=== PATIENT | male | born 1990 | race Caucasian/White ===

== ENCOUNTER 2017-02-19 18:22 | Inpatient (IN) | payer OTHER ==
[2017-02-19] MEDS ORDERED: IV VANCOMYCIN PER PHARMACY 1 EACH MISC MISCELLANE PRN (18:49)
[2017-02-19] MEDS ORDERED: HYDROmorphone 1 MG/ML 1 ML SYRINGE IVP STA (18:49)
[2017-02-19] MEDS ORDERED: ONDANSETRON 4 MG/2 ML VIAL IVP STA (18:49)
[2017-02-19] MEDS ORDERED: SODIUM CHLORIDE 0.9% 1,000 ML IV STA (18:49)
[2017-02-19] MEDS ORDERED: VANCOMYCIN 1,500 MG in SODIUM CHLORIDE 0.9% 250 ML IVPB STA (18:50)
[2017-02-19] MEDS ORDERED: ONDANSETRON 4 MG/2 ML VIAL IVP PRN (19:01)
[2017-02-19] MEDS ORDERED: ACETAMINOPHEN TAB 325 MG TAB PO PRN (19:01)
[2017-02-19] MEDS ORDERED: SODIUM CHLORIDE 0.9% 1,000 ML IV ONE (19:01)
[2017-02-19] MEDS ORDERED: NALOXONE 0.4 MG/ML 1 ML VIAL IV PRN (19:01)
--- NOTE | 2017-02-19 19:01 | ED ---
General Adult HPI - General Chief complaint: Skin/Abscess/Foreign Body Stated complaint: rt arm inflamation, rt foot pain Time Seen by Provider: 02/19/17 18:38 Source: patient, RN notes reviewed Mode of arrival: ambulatory Limitations: no limitations - History of Present Illness Initial comments: Patient 26-year-old male who presents emergency room today with a chief complaint of increased swelling and pain to the right forearm and hand. Does admit to history of IV drug use. States he last used 4 days ago. States that he noticed increased pain starting the following day. States increased swelling last 2-3 days. admits to history of foot drop on the right to do a fasciotomy that was performed back in August. Denies any other complaints. Patient denies any recent fever, chills, shortness of breath, chest pain, back pain, abdominal pain, nausea or vomiting, numbness or tingling, dysuria or hematuria, constipation or diarrhea, headaches or visual changes, or any other complaints. - Related Data Home Medications Medication Instructions Recorded Confirmed Methocarbamol [Robaxin] 1,000 mg PO QID 02/19/17 02/19/17 Pregabalin [Lyrica] 150 mg PO 02/19/17 Allergies Allergy/AdvReac Type Severity Reaction Status Date / Time No Known Allergies Allergy Verified 02/19/17 18:33 Review of Systems ROS Statement: Those systems with pertinent positive or pertinent negative responses have been documented in the HPI. ROS Other: All systems not noted in ROS Statement are negative. Past Medical History Additional Past Medical History / Comment(s): drug abuse History of Any Multi-Drug Resistant Organisms: None Reported Additional Past Surgical History / Comment(s): right hip fascitomy, right foot drop Past Psychological History: No Psychological Hx Reported Smoking Status: Current every day smoker Past Alcohol Use History: None Reported Past Drug Use History: Heroin General Exam - General Exam Comments Initial Comments: General: The patient is awake and alert, in no distress, and does not appear acutely ill. Eye: Pupils are equal, round and reactive to light, extra-ocular movements are intact. No nystagmus. There is normal conjunctiva bilaterally. No signs of icterus. Ears, nose, mouth and throat: There are moist mucous membranes and no oral lesions. Neck: The neck is supple, there is no tenderness or JVD. Cardiovascular: There is a regular rate and rhythm. No murmur, rub or gallop is appreciated. Respiratory: Lungs are clear to auscultation, respirations are non-labored, breath sounds are equal. No wheezes, stridor, rales, or rhonchi. Musculoskeletal: Normal ROM. Strength 5/5. Sensation intact. Pulses equal bilaterally 2+. Neurological: A&O x 3. CN II-XII intact, There are no obvious motor or sensory deficits. Coordination appears grossly intact. Speech is normal. Skin: crease redness and swelling to the right forearm and hand. Mild hepatitic streaking seen at the back of the right elbow. Psychiatric: Cooperative, appropriate mood & affect, normal judgment. Limitations: no limitations Course Vital Signs 02/19/17 18:24 Temperature 99.4 F Pulse Rate 92 Respiratory 18 Rate Blood Pressure 120/68 O2 Sat by Pulse 98 Oximetry Disposition Clinical Impression: IVDU (intravenous drug user), Cellulitis of arm, right Disposition: ADMITTED IP TO THIS [facility] Condition: Stable Referrals: Nonstaff,Physician [Primary Care Provider] - 1-2 days Time of Disposition: 19:00
[2017-02-19 19:39] LABS: Basophils % (A) 0 %; CH 30.4; CHCM 34.3; Eosinophils # (A) 0.2 k/uL (0-0.7); Eosinophils % (A) 2 %; HCT 37.1 % (39.0-53.0); HDW 2.87; HGB 12.7 gm/dL (13.0-17.5); Luc # (Auto) 0.19; Luc % (Auto) 1; Lymphocytes # (A) 1.2 k/uL (1.0-4.8); Lymphocytes % (A) 9 %; MCH 30.5 pg (25.0-35.0); MCHC 34.2 g/dL (31.0-37.0); MCV 89.2 fL (80.0-100.0); Mean Platelet Volume 6.5; Monocytes # (A) 0.8 k/uL (0-1.0); Monocytes % (A) 6 %; Neutrophils % (A) 82 %; RBC 4.16 m/uL (4.30-5.90); RDW 13.3 % (11.5-15.5); WBC 13.4 k/uL (3.8-10.6); WBC (Perox) 13.34
[2017-02-19 19:48] LABS: ALT 29 U/L (21-72); AST 26 U/L (17-59); Alkaline Phosphatase 72 U/L (38-126); Anion Gap 13 mmol/L; Blood Urea Nitrogen 21 mg/dL (9-20); Calcium 9.3 mg/dL (8.4-10.2); Carbon Dioxide 25 mmol/L (22-30); Chloride 104 mmol/L (98-107); Glucose 63 mg/dL (74-99); Non-African American GFR(MDRD) >60 (>60 ml/min/1.73 sqM); Potassium 4.6 mmol/L (3.5-5.1); Sodium 142 mmol/L (137-145); Total Bilirubin 0.4 mg/dL (0.2-1.3); Total Protein 7.2 g/dL (6.3-8.2)
[2017-02-19] MEDS ORDERED: TEMAZEPAM 15 MG CAP PO PRN (20:55)
[2017-02-19] MEDS ORDERED: METHOCARBAMOL 500 MG TAB PO PRN (20:57)
[2017-02-19] MEDS: HEPARIN SODIUM,PORCINE 5,000 UNIT/ML 1 ML VIAL SQ SCH (22:27)
[2017-02-19] MEDS ORDERED: LORazepam 2 MG/ML SYRINGE IV PRN (22:38)
[2017-02-20] MEDS: PREGABALIN 75 MG CAP PO SCH ×3 (00:06→20:30)
[2017-02-20] MEDS: KETOROLAC 30 MG/ML 1 ML VIAL IVP PRN ×4 (00:06→22:07)
[2017-02-20] MEDS: NICOTINE 14MG/24HR PATCH TRANSDERM SCH ×2 (00:06→08:12)
[2017-02-20] MEDS: VANCOMYCIN 1,500 MG in SODIUM CHLORIDE 0.9% 250 ML IVPB SCH ×3 (01:12→16:31)
[2017-02-20] MEDS: HEPARIN SODIUM,PORCINE 5,000 UNIT/ML 1 ML VIAL SQ SCH ×2 (08:12→20:32)
[2017-02-20] MEDS: PANTOPRAZOLE 40 MG TABLET PO SCH ×2 (08:12→08:23)
--- NOTE | 2017-02-20 08:38 | XR ---
Right forearm HISTORY: Swelling and erythema, pain 2 views of the right forearm Bone mineralization, joint spaces are maintained. There is soft tissue swelling. IMPRESSION: Correlate for soft tissue infection, cellulitis. Follow-up as indicated.
[2017-02-20 08:39] LABS: Anion Gap 5 mmol/L; Blood Urea Nitrogen 13 mg/dL (9-20); Calcium 8.7 mg/dL (8.4-10.2); Carbon Dioxide 25 mmol/L (22-30); Chloride 109 mmol/L (98-107); Glucose 94 mg/dL (74-99); Non-African American GFR(MDRD) >60 (>60 ml/min/1.73 sqM); Potassium 4.2 mmol/L (3.5-5.1); Sodium 139 mmol/L (137-145)
[2017-02-20 08:40] LABS: Basophils % (A) 0 %; CH 30.4; CHCM 34.3; Eosinophils # (A) 0.2 k/uL (0-0.7); Eosinophils % (A) 2 %; HCT 35.7 % (39.0-53.0); HDW 2.84; HGB 12.1 gm/dL (13.0-17.5); Luc # (Auto) 0.18; Luc % (Auto) 2; Lymphocytes # (A) 1.1 k/uL (1.0-4.8); Lymphocytes % (A) 10 %; MCH 30.3 pg (25.0-35.0); MCV 89.2 fL (80.0-100.0); Mean Platelet Volume 6.3; Monocytes # (A) 0.5 k/uL (0-1.0); Monocytes % (A) 5 %; Neutrophils # (A) 8.8 k/uL (1.3-7.7); Neutrophils % (A) 81 %; RDW 13.4 % (11.5-15.5); WBC 10.8 k/uL (3.8-10.6); WBC (Perox) 11.02
[2017-02-20 09:51] VITALS: BMI 22.3
--- NOTE | 2017-02-20 10:48 | HP ---
DATE OF ADMISSION: 02/19/2017 CHIEF COMPLAINT: Pain and swelling of the right forearm. HISTORY OF PRESENT ILLNESS: This 26 -year-old gentleman with a past medical history of IV drug abuse, history of right hip fasciotomy, right foot drop, not being followed by primary care physician pin the outpatient setting was apparently using IV heroin. The last use was 3 days ago. The patient noted pain and swelling of the right forearm. Because of increasing pain and swelling, the patient came to [facility] and was admitted to the hospital for further evaluation and treatment. There is no history of any fever, rigors or chills. No history of headache, loss of consciousness or seizures. The patient complaining of severe pain at this time. PAST MEDICAL HISTORY: History of IV drug abuse. History of right hip fasciotomy. MEDICATIONS: 1. Lyrica 150 mg p.o. b.i.d. 2. Robaxin 500 mg q.i.d. p.r.n. ALLERGIES: None. FAMILY HISTORY: No history of heart disease or strokes in the family. SOCIAL HISTORY: History of smoking, history of IV drug abuse, heroin. 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 REVIEW OF SYSTEMS: ENT: No diminishing hearing. No diminished vision. CARDIOVASCULAR: No angina or palpitations. RESPIRATORY: No cough. No hemoptysis. GI: No nausea. : No dysuria. Nervous system: No numbness or weakness. ALLERGY/IMMUNOLOGY: No asthma or hayfever. MUSCULOSKELETAL: As mentioned earlier. HEMATOLOGY/ONCOLOGY: No history of anemia. ENDOCRINE: No history of diabetes mellitus , hypothyroidism. CONSTITUTIONAL: As mentioned earlier. DERMATOLOGY: Negative. RHEUMATOLOGY: Negative. PSYCHIATRY: As mentioned earlier. PHYSICAL EXAMINATION: The patient is alert and oriented times three. Pulse 82, blood pressure 124/74. Respiratory rate 19. Temperature 98.8, pulse ox 97% on room air. HEENT: Conjunctivae normal. NECK: No jugular venous distention. CARDIOVASCULAR: S1, S2 muffled. Breath sounds diminished at the bases. No rhonchi. No crackles. ABDOMEN: Soft and nontender. No mass palpable. LEGS: No edema. No swelling. Nervous system: Higher functions as mentioned earlier. Moves all four limbs. No focal deficits. LYMPHATICS: No lymph nodes palpable in the neck, axillae or groin. SKIN: No ulcer, rash or bleeding. Pain and swelling of the right forearm present and tenderness present. A small area of fluctuation also present. LABS: WBC 13.2, hemoglobin is 12.7, glucose 63. ASSESSMENT: 1. Acute cellulitis of the right forearm, status post IV drug abuse. 2. Increased WBC. 3. Anemia, normocytic. 4. Hypoglycemia, mild. 5. History of right hip fasciotomy and right foot drop. 6. History of nicotine dependence. 7. FULL CODE. RECOMMENDATIONS AND DISCUSSION: In this 26-year-old gentleman who presented with multiple complex medical issues, we will monitor the patient closely, continue the current medications, continue with symptomatic treatment. I would recommend IV vancomycin. I would also recommend orthopedic evaluation because of concerns of compartment syndrome and other issues. Otherwise, IV fluids and symptomatic treatment. I would also recommend Toradol. Further recommendations to follow. Recommend the patient to follow up with primary physician closely in the outpatient setting.
--- NOTE | 2017-02-20 11:16 | P.CNOR ---
History of Present Illness - [facility] Consult date: 02/20/17 Consult reason: other (Right upper extremity swelling and cellulitis with recent history of IV drug use) Review of Systems Denies any recent trauma his right upper extremity. Admits to drug use with IV approximately 4 days ago. He feels tightness in his fingers and wrist and elbow which apparently has been improving here in the hospital. He admits to recent history of fasciotomy and his right hip than the [place] Past Medical History Past Medical History: Musculoskeletal Disorder (Admits to soreness and tightness in his wrist and fingers. She has had swelling and erythema in his right upper extremity. Denies any recent trauma to his right upper extremity. He admits to recent fasciotomy at his right hip he is unclear the specific details but this was done in August 2016 at [facility]) Additional Past Medical History / Comment(s): drug abuse History of Any Multi-Drug Resistant Organisms: None Reported Additional Past Surgical History / Comment(s): right hip fascitomy, right foot drop Past Anesthesia/Blood Transfusion Reactions: Previous Problems w/ Anesthesia Additional Past Anesthesia/Blood Transfusion Reaction / Comm: Pt states he was hard to wake up after. Past Psychological History: No Psychological Hx Reported Smoking Status: Current every day smoker Past Alcohol Use History: None Reported Past Drug Use History: Heroin - Past Family History Mother Family Medical History: No Reported History Father Family Medical History: No Reported History Medications and Allergies Home Medications Medication Instructions Recorded Confirmed Type Methocarbamol [Robaxin] 500 mg PO QID PRN 02/19/17 02/19/17 History Pregabalin [Lyrica] 150 mg PO BID 02/19/17 02/19/17 History Allergies Allergy/AdvReac Type Severity Reaction Status Date / Time No Known Allergies Allergy Verified 02/19/17 19:25 Physical Examination Osteopathic Statement: *. No significant issues noted on an osteopathic structural exam other than those noted in the History and Physical/Consult. - Elbow right Location of pain: posterior, forearm Pain modifiers: with motion Stiffness: other (Some overall tightness with generalized motion) Swelling: of the forearm Appearance: erythema, warmth (There is significant swelling over his hand wrist fingers forearm and posterior to his elbow. There is erythema and some induration particularly the mid forearm by his ulna. He has good motion at his hand wrist and fingers though it is tight. There is no pain out of proportion with exam. He has able to passively or actively mobilize his elbow wrist hand and fingers. There is a area over his medial posterior forearm approximately 3 x 3 cm in size that has mostly erythema and induration. There is no obvious blistering or discrete fluid collection) Results - Labs Labs: Abnormal Lab Results - Last 24 Hours (Table) 02/19/17 02/19/17 02/20/17 Range/Units 19:20 19:20 07:43 WBC 13.4 H (3.8-10.6) k/uL RBC 4.16 L (4.30-5.90) m/uL Hgb 12.7 L (13.0-17.5) gm/dL Hct 37.1 L (39.0-53.0) % Neutrophils # 11.0 H (1.3-7.7) k/uL Chloride 109 H (98-107) mmol/L BUN 21 H (9-20) mg/dL Glucose 63 L (74-99) mg/dL 02/20/17 Range/Units 07:43 WBC 10.8 H (3.8-10.6) k/uL RBC 4.00 L (4.30-5.90) m/uL Hgb 12.1 L (13.0-17.5) gm/dL Hct 35.7 L (39.0-53.0) % Neutrophils # 8.8 H (1.3-7.7) k/uL Chloride (98-107) mmol/L BUN (9-20) mg/dL Glucose (74-99) mg/dL H & H 02/19/17 02/20/17 Range/Units 19:20 07:43 Hgb 12.7 L 12.1 L (13.0-17.5) gm/dL Hct 37.1 L 35.7 L (39.0-53.0) % Result Diagrams: 02/20/17 07:43 02/20/17 07:43 - Diagnostic results Elbow x-ray: report reviewed, image reviewed (The patient has x-rays of his right forearm which show no evidence of fracture or dislocation. There is significant swelling in his soft tissues. There is no retained foreign bodies.) Assessment and Plan Plan: Assessment Cellulitis right upper extremity with recent history of IV drug abuse approximately 4 days ago Diffuse swelling and erythema right hand wrist fingers forearm and elbow No discrete fluid collection at this point No evidence of compartment syndrome Plan The patient has significant cellulitis of the right upper extremity with swelling diffusely due to his IV drug abuse. He does not have a discrete fluid collection and I would not plan to pursue irrigation and debridement at this point however if the infection continues to clear and his issues come to a head with a more discrete fluid mass then and irrigation and debridement may be warranted. For the time being I think he should continue with his IV medication as this does seem to be providing improvement. He may do well with a warm compress over his right upper extremity as well and elevation. I discussed this with him and answered his questions best my ability and he is agreeable.
[2017-02-20] MEDS: HYDROmorphone 1 MG/ML 1 ML SYRINGE IV PRN ×3 (13:09→20:31)
--- NOTE | 2017-02-20 13:09 | US ---
EXAMINATION TYPE: US venous doppler duplex UE RT DATE OF EXAM: 02/20/2017 COMPARISON: NONE CLINICAL HISTORY: Right upper extremity swelling; rule out DVT. Right arm swelling SIDE PERFORMED: Right Right Arm: Appears negative for DVT, scanned right lateral lower arm palpable/painful area: 3.6 x 1.8 x 2.3cm superficial complex vascular area IMPRESSION: 1. No diagnostic evidence of DVT. 2. There is a 3.6 cm superficial vascular area overlying the area of palpable abnormality which appea rs very complex. Differential include abscess and hematoma. Other etiologies not excluded.
[2017-02-20] MEDS: LORazepam 1 MG TAB PO PRN ×2 (15:10→20:31)
[2017-02-21] MEDS: VANCOMYCIN 1,500 MG in SODIUM CHLORIDE 0.9% 250 ML IVPB SCH ×3 (00:29→19:56)
[2017-02-21] MEDS: HYDROmorphone 1 MG/ML 1 ML SYRINGE IV PRN ×5 (00:43→15:29)
[2017-02-21] MEDS: LORazepam 1 MG TAB PO PRN ×3 (00:43→22:12)
[2017-02-21] MEDS ORDERED: VANCOMYCIN TROUGH DUE 1 EACH MISC MISCELLANE ONE (07:00)
[2017-02-21] MEDS: PANTOPRAZOLE 40 MG TABLET PO SCH (07:42)
[2017-02-21] MEDS: HEPARIN SODIUM,PORCINE 5,000 UNIT/ML 1 ML VIAL SQ SCH ×2 (07:42→19:57)
[2017-02-21] MEDS: NICOTINE 14MG/24HR PATCH TRANSDERM SCH (07:42)
[2017-02-21] MEDS: PREGABALIN 75 MG CAP PO SCH ×2 (07:50→19:57)
[2017-02-21 08:00] LABS: Blood Urea Nitrogen 14 mg/dL (9-20); Calcium 9.1 mg/dL (8.4-10.2); Carbon Dioxide 25 mmol/L (22-30); Glucose 102 mg/dL (74-99); Non-African American GFR(MDRD) >60 (>60 ml/min/1.73 sqM); Potassium 4.2 mmol/L (3.5-5.1); Sodium 140 mmol/L (137-145)
[2017-02-21 08:06] LABS: Anion Gap 9 mmol/L; Chloride 106 mmol/L (98-107)
--- NOTE | 2017-02-21 10:41 | PN ---
DATE OF SERVICE: 02/20/2017 This 26 -year-old gentleman who was admitted with acute cellulitis of right forearm after IV drug abuse, is being closely monitor. Orthopedics has seen the patient. There is a pointy area but however, surgical interventions is not being planned yet. The ultrasound of the arm was recommend that showed 3.690 superficial vascular area overlying the area of palpable abnormality which appears very complex, possible abscess or hematoma. No evidence of DVT. On exam, alert and oriented x3. Pulse is 86, blood pressure 120/55, respiratory rate 18, temperature 97.22. Pulse ox 94% on room air. HEENT: Conjunctivae normal. NECK: No jugular venous distention. CARDIOVASCULAR: S1, S2 muffled. RESPIRATORY: Breath sounds diminished at the bases. Scattered rhonchi. No crackles. ABDOMEN: Soft. Nontender. LEGS: No edema. No swelling. CENTRAL NERVOUS SYSTEM: No focal deficits. Right arm swelling and pointed area over dorsum of the mid part of the right forearm, flexion, tender, erythematous. LABS: WBC 10.5, hemoglobin is 12.1. ASSESSMENT: 1. Acute cellulitis right forearm, status post IV drug abuse. 2. Rule out hematoma or abscess or complex mass lesion in the mid part of the right forearm. 3. Increased WBC. 4. Anemia, normocytic. 5. Hypoglycemia, mild. 6. History of right hip fasciotomy and right foot drop. 7. History of nicotine dependence. 8. FULL CODE. RECOMMENDATIONS AND DISCUSSION: Continue the current medications. Continue symptomatic treatment. Otherwise, continue broad spectrum IV antibiotics. Guarded prognosis. Closely follow with Orthopedic surgery. Prognosis guarded. Pain medications. See orders for further details. Discussed with the patient. Understands and agrees. Discussed with Ortho. Ultrasound reviewed.
--- NOTE | 2017-02-21 12:11 | P.PN ---
Subjective Principal diagnosis: Right upper extremity cellulitis with pain and swelling; recent IV drug abuse Patient is a very pleasant 26-year-old male who is seen and examined at bedside for follow-up evaluation for right upper extremity swelling and cellulitis with eccentric history of IV drug use. Since being seen and examined yesterday, he continues to receive IV vancomycin. He was experiencing significant right upper extremity swelling, erythema, and pain up to the lower portion of the right tricep. The erythema has significantly reduced and is mainly localized to the right forearm at the mid forearm by the ulna. He has evidence of a discrete fluctuant fluid collection/mass that appears to have come to a head. Patient states his pain is better controlled at the right upper extremity today as compared yesterday. He continues has significant stiffness with motion of the right elbow, wrist, and all fingers of the right hand. He has pain with closing and opening his right fist. He denies any other body pains. He denies any recent injuries. He states his last food intake was at approximately 11:00 AM this morning. Since being seen yesterday, he has an ultrasound Doppler performed of the right upper extremity did show evidence of a superficial vascular area overlying the area of palpable abnormality of the right forearm which appears very complex in which the differential would include abscess and hematoma. Objective - Vital Signs Vital signs: Vital Signs Temp 99.6 F 02/21/17 07:00 Pulse 93 02/21/17 07:00 Resp 14 02/21/17 08:00 BP 138/70 02/21/17 07:00 Pulse Ox 96 02/21/17 07:00 Intake & Output 02/20/17 02/21/17 02/21/17 18:59 06:59 18:59 Intake Total 240 400 Balance 240 400 Weight 72.575 kg Intake: Oral 240 400 Other: # Voids 2 1 # Bowel Movements 0 - Exam Physical Exam: Patient is awake, alert, and oriented 3 Vital signs stable Good chest excursion with deep inspiration and expiration Abdomen soft nontender No signs or symptoms of DVT; no calf pain Significant erythema more localized over the right mid forearm at the ulnar side with evidence of discrete fluctuant fluid collection/mass that appears to come to a head with fluid collection Swelling of the right upper extremity at approximately the mid tricep distally throughout the right upper extremity Generalized pain with palpation of the right upper extremity Right upper extremity is warm with palpation Active range of motion of the right upper extremity; increased pain with performing folder inspector on the right and finger extension Stiffness with moving all fingers of the right hand and performing elbow flexion and extension Active range of motion positive sustained without difficulty including the right deltoid - Labs CBC & Chem 7: 02/20/17 07:43 02/21/17 06:58 Labs: Abnormal Lab Results - Last 24 Hours (Table) 02/21/17 Range/Units 06:58 Glucose 102 H (74-99) mg/dL Microbiology - Last 24 Hours (Table) 02/19/17 19:20 Blood Culture - Preliminary Blood No Growth after 24 hours Assessment and Plan (1) Right arm pain Status: Acute (2) Swelling of right upper extremity Status: Acute (3) Cellulitis of arm, right Status: Acute (4) IVDU (intravenous drug user) Status: Acute Plan: Pertinent studies: Venous ultrasound Doppler of the right upper extremity: 3.6 cm superficial vascular area overlying the area of palpable abnormality which appears very complex in which the differential would include abscess and hematoma; no diagnostic evidence of DVT; scan of the right lateral forearm shows palpable 3.6 cm x 1.8 cm x 2.3 cm superficial complex vascular area Assessment: Right upper extremity cellulitis with recent history of IV drug abuse approximate 5 days ago Diffuse right upper extremity swelling and pain Evidence of discrete fluctuant collection/mass of the right mid forearm on the ulnar side Plan: 1. Patient has been discussed in detail with Dr. Jose Carlos Brewer. Patient will need to undergo incision and drainage of the infected wound site of the right mid forearm on the ulnar side. Patient will become nothing by mouth status immediately. We may plan for surgical intervention later today. This has been discussed in detail with the patient at the bedside. Patient feels incision and drainage is a good plan of care as conservative treatment has not significantly improved his symptoms. Case has been discussed in detail with Dr. Angela in medicine as well who also feels proceeding for surgical intervention is good plan of care. 2. Dr. Angela in medicine will continue to follow patient 3. We'll continue to follow patient closely Time with Patient: Greater than 30
[2017-02-21] MEDS ORDERED: LIDOCAINE 1% INJ 10MG/ML (20 ML MDV) ONE (17:08)
[2017-02-21] MEDS ORDERED: MIDAZOLAM 2 MG/2 ML VIAL ONE (17:08)
[2017-02-21] MEDS ORDERED: fentaNYL (PF) 50 MCG/ML 2 ML AMP ONE (17:08)
[2017-02-21] MEDS ORDERED: PROPOFOL 10 MG/ML 20 ML VIAL IV ONE (17:08)
[2017-02-21] MEDS ORDERED: SODIUM CHLORIDE 0.9% 1,000 ML IV ONE (17:08)
[2017-02-21] MEDS ORDERED: SUCCINYLCHOLINE CHLORIDE 100 MG/5 ML SYR IV ONE (17:08)
[2017-02-21] MEDS ORDERED: ceFAZolin 1,000 MG in SODIUM CHLORIDE 0.9% 1,000 ML IRRIGATION ONE (17:32)
[2017-02-21] MEDS ORDERED: HYDROmorphone 1 MG/ML 1 ML SYRINGE IVP ONE ×2 (18:02→18:11)
[2017-02-21] MEDS ORDERED: BENZOCAINE/MENTHOL LOZENG 1 EACH LOZENGE MUCOUS MEM PRN (18:08)
--- NOTE | 2017-02-21 18:08 | P.OP ---
Date of Procedure: 02/21/17 Preoperative Diagnosis: Abscess right forearm Cellulitis right forearm History of recent IV drug abuse Postoperative Diagnosis: Same Procedure(s) Performed: Irrigation and excisional debridement of the right forearm abscess deep extending into the fascia and muscle not involving the bone Implants: Anesthesia: GETA Pathology: other (Deep wound culture sent to microbiology) Condition: stable Disposition: PACU Indications for Procedure: Operative Findings: Description of Procedure: Preoperative diagnosis: Right forearm abscess, deep into the muscular tissue Right forearm cellulitis Recent history of IV drug abuse Procedure: Incision with irrigation and excisional debridement of right forearm abscess, deep into the muscular tissue Surgeon: Dr. Brewer Asst.: None Anesthesia: Gen. per Dr. Suárez Estimated blood loss: Approximately 20 mL Components implanted: The wound was packed with iodoform gauze Disposition: To recovery room in good stable condition Operative indications The patient has been in the hospital in regards to his right forearm infection. He has a recent history of IV drug abuse and developed an infection in his right forearm with cellulitis with possible abscess. He has been on IV antibiotics and the infection has come to a head over his right ulnar-sided forearm. There is obvious fluid collection at the area and significant erythema warmth or induration. Patient was continuing his IV antibiotics. With the fluid and pus under pressure we felt he had a significant abscess extending to the deep tissue and I felt that surgical intervention could give him significant benefit to alleviate the infection. We discussed the range of treatment options from conservative to surgical. They elected proceed with surgical intervention. We answered their questions to the best of our ability healing which they can understand. They signed an informed consent. Operative summary After obtaining informed consent evaluation by anesthesia, preoperative evaluation and clearance for medical service, the patient was identified and prepped Bern[place] area and the surgical site was marked. There brought to the operating room where the given appropriate anesthesia by the anesthesia department in standard fashion without any complications. Once the anesthesia was established we were able to position the patient in a supine position with his right arm draped free. The airway and C-spine was monitored continuously. Once patient was well positioned lower extremity was prepped and draped in normal standard sterile fashion. An appropriate keystone protocol and timeout was completed and were able to proceed with surgery. At his right upper extremity over the abscess I made an incision approximately 4 cm in length. Extending into the subcutaneous tissue there was gross purulence emitted from the abscess. It was foul smelling opaque greenish yellow fluid. I was able to explore the abscess and drain out significant amount of purulent pus. Deep wound culture was taken and sent to microbiology. The abscess itself extended through the subcu tissue down into the muscular tissue there is a pocket extending approximately 6 x 6 cm at the deep tissue. There is significant denuded tissue and I was able to curet down and excise denuded tissue and denuded margins of tissue to get to a good clean base. Once the excision of the purulent tissue was removed the wound was copiously irrigated. Further tissue was excised to a clean base. There is no further pus admitting admitted and the deep wound was copiously irrigated with antibiotic solution of 2 L. Bleeding was managed and the wound was packed with iodoform gauze and the skin was closed loosely with 3-0 nylon. The area was cleaned and dried and then dressed with 4 x 4's web roll and an Nikolay wrap. We did not use a tourniquet the patient had good vascularity status distal arm and hand. He was woken up by anesthesia. Troponin down he was extubated and transferred back to his stretcher brought to recovery room in good stable condition he'll be admitted for continued IV antibiotics medical management and wound care. We will continue to follow him closely for his postop course.
--- NOTE | 2017-02-21 18:53 | PN ---
DATE OF SERVICE: 02/21/2017 This 26-year-old gentleman was admitted with acute cellulitis and pointed abscess in the forearm at this time today. No chest pain or palpitations. Dr. Brewer is planning possible surgical intervention with I&D. On exam, alert, oriented x3. Pulse 93, blood pressure 130/70, respirations 14, temperature 98.6, pulse 96% on room air. HEENT: Normal. NECK: No JVD. CARDIOVASCULAR: S1 and S2 muffled. LUNGS: Breath sounds diminished in the bases. No rhonchi, no crackles. ABDOMEN: Soft, nontender. No masses palpable. EXTREMITIES: Legs no edema. No swelling. Right forearm significant erythema, swelling and abscess pointing with pain and tenderness and yellowish nature present, fluctuating. LABS: WBC 10, hemoglobin 12.1. ASSESSMENT: 1. Acute cellulitis and abscess of the right forearm secondary to IV drug abuse. 2. Hematoma or abscess complex mass lesion in the mid part of the right forearm on ultrasound. 3. Increased WBC. 4. Anemia, normocytic. 5. Hypoglycemia, mild. 6. History of right and right foot drop. 7. History of nicotine dependence. 8. Full code. RECOMMENDATIONS AND DISCUSSION: Continue current medications, continue with monitoring and symptomatic treatment. Otherwise at this time I would recommend incision and drainage and closely follow with orthopedic surgery. Obtain cultures. Other than that, I would also recommend follow up cultures. Guarded prognosis because of multiple complex medical issues. Further recommendations to follow. See orders for further details. MTDD
[2017-02-21] MEDS: cloNIDine HCL 0.1 MG TAB PO SCH (19:56)
[2017-02-21] MEDS: SODIUM CHLORIDE 0.9% 1,000 ML IV SCH (19:56)
[2017-02-21] MEDS: HYDROmorphone 1 MG/ML 1 ML SYRINGE IVP PRN (20:30)
[2017-02-21] MEDS: KETOROLAC 30 MG/ML 1 ML VIAL IVP PRN (22:12)
[2017-02-22] MEDS: HYDROmorphone 1 MG/ML 1 ML SYRINGE IVP PRN ×6 (01:50→23:54)
[2017-02-22] MEDS: cloNIDine HCL 0.1 MG TAB PO SCH ×2 (07:48→21:31)
[2017-02-22] MEDS: NICOTINE 14MG/24HR PATCH TRANSDERM SCH (07:53)
[2017-02-22] MEDS: HYDROcodone/APAP 5-325MG 1 EACH TAB PO PRN (07:54)
[2017-02-22] MEDS: PREGABALIN 75 MG CAP PO SCH ×2 (07:54→21:31)
[2017-02-22] MEDS: PANTOPRAZOLE 40 MG TABLET PO SCH (07:54)
[2017-02-22] MEDS: LORazepam 1 MG TAB PO PRN ×5 (07:54→23:53)
[2017-02-22] MEDS: HEPARIN SODIUM,PORCINE 5,000 UNIT/ML 1 ML VIAL SQ SCH ×2 (07:54→21:31)
[2017-02-22] MEDS: KETOROLAC 30 MG/ML 1 ML VIAL IVP PRN ×3 (07:54→21:44)
[2017-02-22] MEDS: VANCOMYCIN 1,500 MG in SODIUM CHLORIDE 0.9% 250 ML IVPB SCH ×2 (07:55→21:32)
[2017-02-22] MEDS: SODIUM CHLORIDE 0.9% 1,000 ML IV SCH ×2 (07:55→21:31)
--- NOTE | 2017-02-22 09:03 | P.PN ---
Subjective Principal diagnosis: Right upper extremity cellulitis with pain and swelling; recent IV drug abuse Patient is a pleasant 26-year-old male who is seen and examined at bedside follow-up evaluation for his cellulitis and abscess of the right forearm with history of recent IV drug abuse. Last evening he was taken to the operating room for irrigation and excisional debridement of the right forearm deep abscess extending into the fascia and muscle but not involving the bone. Since that time, he states he continued his have some tightness throughout range of motion of the right upper extremity but feels less tightness and his range of motion of the right upper extremity is more easy to perform. He does continue to have some warmth and swelling over the right upper extremity. He continues with some redness as well that is more localized to the right forearm. He's been eating and voiding without significant difficulty. He continues receive IV vancomycin. He continues to be seen by Dr. Angela in medicine. Objective - Vital Signs Vital signs: Vital Signs Temp 96.6 F L 02/22/17 07:32 Pulse 83 02/22/17 07:32 Resp 20 02/22/17 07:32 BP 115/58 02/22/17 07:32 Pulse Ox 96 02/22/17 07:32 Intake & Output 02/21/17 02/22/17 02/22/17 18:59 06:59 18:59 Intake Total 401 Output Total 20 Balance 381 Intake: IV 401 Output: Estimated Blood Loss 20 Other: # Voids 2 1 - Exam Physical Exam: Patient is awake, alert, and oriented 3 Vital signs stable Good chest excursion with deep inspiration and expiration Abdomen soft nontender No signs or symptoms of DVT; no calf pain Dressing intact over the right forearm some: Dressing is removed during physical examination; iodoform is removed from the incision site; sutures remained intact Evidence of a small opening at the incision at the right forearm after removal of iodoform Some mild serosanguineous drainage that does not appear purulent at the incision site Dressing is reapplied with Adaptic, nonstick Telfa, 4 x 4's, and Nikolay wrap Right upper extremity erythema more localized over the right mid forearm at the ulnar side Swelling of the right upper extremity at approximately the mid tricep distally throughout the right upper extremity that has had some improvement as compared to yesterday Generalized pain with palpation of the right upper extremity Right upper extremity is warm with palpation Active range of motion of the right upper extremity; 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 Stiffness with moving all fingers of the right hand and performing elbow flexion and extension Active range of motion positive sustained without difficulty including the right deltoid - Labs CBC & Chem 7: 02/20/17 07:43 02/21/17 06:58 Labs: Microbiology - Last 24 Hours (Table) 02/21/17 17:36 Gram Stain - Preliminary Arm - Right Wound Culture - Preliminary 02/21/17 17:36 Anaerobic Culture - Preliminary Arm - Right 02/19/17 19:20 Blood Culture - Preliminary Blood No Growth after 48 hours Assessment and Plan (1) Right arm pain Status: Acute (2) Swelling of right upper extremity Status: Acute (3) Cellulitis of arm, right Status: Acute (4) IVDU (intravenous drug user) Status: Acute Plan: Pertinent studies: Venous ultrasound Doppler of the right upper extremity: 3.6 cm superficial vascular area overlying the area of palpable abnormality which appears very complex in which the differential would include abscess and hematoma; no diagnostic evidence of DVT; scan of the right lateral forearm shows palpable 3.6 cm x 1.8 cm x 2.3 cm superficial complex vascular area Gram stain preliminary wound results: Show evidence of many gram-negative bacilli, few gram-positive cocci, and moderate polymorphonuclear leukocytes. Aerobic wound culture currently in progress Assessment: Right upper extremity cellulitis with recent history of IV drug abuse approximately 5 days ago Diffuse right upper extremity swelling and pain Evidence of discrete fluctuant collection/mass of the right mid forearm on the ulnar side Right upper extremity forearm infection with preliminary Gram stain results showing evidence of gram-negative bacilli, few gram-positive cocci Plan: 1. Resting has been removed and iodoform has been removed at the right forearm incision. Dressing has been changed to Adaptic, nonstick Telfa, 4 x 4's, and Nikolay wrap. We will continue with daily dressing changes as needed. At this time patient may work through gentle range of motion of the right upper extremity but should avoid excessive activities with right upper extremity. We will continue to follow the patient closely. He should keep the dressing over the right forearm clean, dry, and intact. From an orthopedic standpoint, patient will be clear for discharge once cleared by medicine and infectious disease once he is able to be placed on antibiotic regimen for discharge. Infectious disease and medicine will most likely try to avoid PICC line placement given his IV drug abuse history. 2. Dr. Angela in medicine will continue to follow patient 3. We will currently planned to consult with Dr. Menon in infectious disease for further evaluation and possible antibiotic regimen 4. Following discharge, patient may follow-up with Guillermo Cavazos PA-C or Dr. Jose Carlos Brewer at [facility] this coming 02/28/2017 , or next 03/01/2017 5. Patient has been discussed in detail with Dr. Jose Carlos Brewer and he agrees with this plan Time with Patient: Less than 30
[2017-02-22 09:07] LABS: Anion Gap 9 mmol/L; Blood Urea Nitrogen 17 mg/dL (9-20); Calcium 9.1 mg/dL (8.4-10.2); Carbon Dioxide 25 mmol/L (22-30); Chloride 107 mmol/L (98-107); Glucose 119 mg/dL (74-99); Non-African American GFR(MDRD) >60 (>60 ml/min/1.73 sqM); Potassium 4.2 mmol/L (3.5-5.1); Sodium 141 mmol/L (137-145)
[2017-02-22 09:31] LABS: Basophils % (A) 0 %; CH 30.1; CHCM 32.9; Eosinophils # (A) 0.2 k/uL (0-0.7); Eosinophils % (A) 2 %; HCT 37.6 % (39.0-53.0); HGB 12.3 gm/dL (13.0-17.5); Luc # (Auto) 0.18; Luc % (Auto) 2; Lymphocytes % (A) 11 %; MCHC 32.6 g/dL (31.0-37.0); MCV 92.1 fL (80.0-100.0); Mean Platelet Volume 6.8; Monocytes # (A) 0.5 k/uL (0-1.0); Monocytes % (A) 5 %; Neutrophils # (A) 7.4 k/uL (1.3-7.7); Neutrophils % (A) 79 %; RBC 4.08 m/uL (4.30-5.90); RDW 13.3 % (11.5-15.5); WBC 9.4 k/uL (3.8-10.6)
--- NOTE | 2017-02-22 14:47 | P.CN ---
Psychiatric Consult - . Consult date: 02/22/17 Consult:: IDENTIFYING DATA: Mr. English is a 26-year-old male admitted to the [facility] with abscess and cellulitis of the right forearm secondary to IV heroin and cocaine use. HISTORY OF PRESENT ILLNESS: I reviewed the medical record and interviewed him. He stated that he's been using heroin "off and on" over the last 11 years. He relapsed to heroin after he was released from [facility] last year. He was abstinent for approximately 4 months when he was placed in the medical rehabilitation program in [place] following a right leg fasciotomy. After he left the rehabilitation program he resumed use of heroin. He has been injecting heroin and sometimes heroin and cocaine a daily basis. He was living in [facility] and noticed swelling in his right arm. He called his father who brought him to the [facility]. He has been in "3 or 4" substance abuse treatment programs; the most recent was a program in [facility]. His only abstinence from heroin is when he was in [facility], [facility], or in a medical hospital or substance abuse treatment program. He was abstinent briefly in 2016 when he was prescribed Suboxone by a private physician. He has never attended a methadone treatment program. We discussed treatment options. He is not interested in a referral to a methadone treatment program. He inquired about Vivatrol stating that he has 2 cousins that have been abstinent while receiving Vivitrol injections. He would be interested in referral to a residential substance abuse treatment program or to a Suboxone provider. PAST PSYCHIATRIC HISTORY: He denied psychiatric hospitalizations. He only met with counselor is when he was in substance abuse treatment programs. SOCIAL HISTORY: He is unemployed and has no income. He is homeless. 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 He is currently on absconder status for charges of prisoner possessing contraband and furnishing contraband to prisoners. He served 2 years. He has past felony charges of controlled substance possession, prisoner contraband possession, controlled substance possession and furnishing contraband to prisoners MENTAL STATUS EXAM: He presented as a pleasant casually groomed 26-year-old male. He made eye contact and attended the interview. His right arm was swollen and bandaged. He had a bright facial expression. He was alert and oriented to person, place and time. He showed no abnormality of psychomotor activity. No abnormal involuntary movements. Her speech his speech was spontaneous with normal rate, rhythm and volume. His affect was bright, stable and appropriate. He denied suicidal ideation or wishes. He denied homicidal ideation. He denied feeling hopeless, helpless or worthless. He did not express ideas reference, paranoid ideation or delusional thinking. His thinking was abstract and associations were coherent and logical. He denied hallucinations and did not appear to be responding to internal stimuli. IMPRESSIONS: He is a 26-year-old male with a history of an opiate use disorder. He presented to [facility] with an abscess and cellulitis of her right arm. He is an absconder from parole. He would benefit from substance abuse treatment and expressed a preference for Vivitrol injections. DIAGNOSIS: Opiate use disorder severe, cocaine use disorder severe, lack of income, homelessness, legal problems PLAN: There is no indication for transfer to the psychiatric unit. He may call the Access line to arrange admission to a residential substance abuse treatment program. Programs such as [facility] are able to administer Vivatrol for the treatment of his opiate use disorder. 02/22/17 14:28
--- NOTE | 2017-02-22 19:32 | P.PN ---
Subjective Date of service 02/22/2017. Progress note being dictated for Dr. Felipe. Interval history: This a 26-year-old gentleman admitted with acute cellulitis with abscess of the right forearm secondary to IV drug abuse, status post I&D and multiple other medical issues. Aerobic wound Cultures in progress, Gram stain reporting gram-negative bacilli, few gram-negative cocci and moderate Polymorphonuclear leukocytes. Continues on Merrem, wound vac as per infectious disease. Dressing changed today by orthopedics. Chloride 107. Denies chest pain, palpitations or increasing shortness of breath. Afebrile. Evaluated by psychiatry with recommendations noted. Objective - Vital Signs Vital signs: Vital Signs Temp 96.3 F L 02/22/17 16:12 Pulse 77 02/22/17 16:12 Resp 16 02/22/17 16:12 BP 133/82 02/22/17 16:12 Pulse Ox 97 02/22/17 16:12 Intake & Output 02/21/17 02/22/17 02/22/17 18:59 06:59 18:59 Intake Total 401 Output Total 20 Balance 381 Intake: IV 401 Output: Estimated Blood Loss 20 Other: # Voids 2 1 3 - Exam PHYSICAL EXAM: VITAL SIGNS: [As above] GENERAL: [Sitting up in bed, no acute distress] HEENT: [Pupils equal conjunctiva normal.] NECK: [Supple, no JVD] RESPIRATORY EFFORT:[ Normal] LUNGS: [Bilateral bases diminished, no wheezes rhonchi or crackles] CARDIOVASCULAR[ regular S1 and S2, no edema] GI: [Abdomen soft, nontender, positive bowel sounds.] PSYCH: [Alert and oriented -3, mood and affect normal.] SKIN: [Right forearm dressing clean dry and intact, improving erythema and swelling, tender] NEURO: No focal deficits Microbiology 02/21/17 17:36 Arm - Right Gram Stain - Preliminary 02/21/17 17:36 Arm - Right Wound Culture - Preliminary 02/21/17 17:36 Arm - Right Anaerobic Culture - Preliminary 02/19/17 19:20 Blood Blood Culture - Preliminary No Growth after 48 hours - Labs CBC & Chem 7: 02/22/17 08:14 02/22/17 08:14 Labs: Abnormal Lab Results - Last 24 Hours (Table) 02/22/17 02/22/17 Range/Units 08:14 08:14 RBC 4.08 L (4.30-5.90) m/uL Hgb 12.3 L (13.0-17.5) gm/dL Hct 37.6 L (39.0-53.0) % Glucose 119 H (74-99) mg/dL Microbiology - Last 24 Hours (Table) 02/21/17 17:36 Gram Stain - Preliminary Arm - Right Wound Culture - Preliminary 02/21/17 17:36 Anaerobic Culture - Preliminary Arm - Right 02/19/17 19:20 Blood Culture - Preliminary Blood No Growth after 48 hours Assessment and Plan Plan: 1. [ Acute cellulitis with abscess of the right forearm secondary to IV drug abuse]. Cultures pending, Gram stain reporting gram-negative bacilli, few gram positive cocci 2. [ Hematoma or abscess complex mass lesion in the mid [id number] of the right forearm ultrasound, status post I&D]. 3. [ Leukocytosis]. 4. [ Anemia, normocytic]. 5. [ History of nicotine dependence]. Plan: Continue on current medication regime ,monitoring and symptomatic treatment. Cleared by orthopedics for discharge. Outpatient Substance abuse program recommended per psychiatry. Discharge antibiotic recommendations pending from infectious disease. Discharge planning in progress for tomorrow. Prognosis guarded The impression and plan of care has been dictated as directed. : I performed a H&P examination of this patient and discussed the same with the dictator. I agree with the dictator's note. Any additional findings/opinions/ etc. will be noted.
--- NOTE | 2017-02-22 20:48 | PN ---
This 26-year-old gentleman who was admitted with significant infection and abscess of the right hand and incision and drainage orthopedic surgery. Seen and evaluated the patient with the nurse practitioner. Seen and evaluated the patient along with nurse practitioner. Please refer to the nurse practitioner notes and impression documented as a scribe for further information.
--- NOTE | 2017-02-22 23:34 | P.CONS ---
History of Present Illness - Reason for Consult Consult date: 02/22/17 - Chief Complaint Abscess right arm - History of Present Illness Pleasant 26-year-old male presents to the emergency center via his family because the onset of increasing pain and swelling to his right arm. He has a known history of heroin injection. At one of his last injection sites on the right forearm developed an area of increasing swelling and pain. Because he started to feel poorly. He sought care at the emergency center was found evidence of a significant abscess to the arm. Because he was admitted. He has been seen by orthopedics and the incision and drainage has occurred of the 6 cm abscess. Patient is postoperative day relatively well. The ulceration was packed by orthopedics today. His pain control seems to be adequate this time. He is denying further high-grade fevers, chills or rigors. He was somewhat concerned at the start of the problem to his right arm because of his history of a prior profound illness related to his right hip. He had overdosed with a heroin cocaine mix. And was unconscious for quite some time. When he finally awoke he had evidence of an extensive pressure wound that had started to his right hip. By the time he presented to Hospital he was profoundly ill with multisystem organ failure. He had acute renal failure that required hemodialysis for many weeks. He had rhabdomyolysis. Eventually he improved and was followed by surgery but never received a skin graft. Is noted he has ongoing difficulties with relapse of his injection drug use mostly with heroin and some cocaine. Denies other drugs at this time. He is feeling slightly better today. Review of Systems 26-year-old male who is comfortable at this time. Is denying high-grade fevers , chills or rigors. HEENT:Denies headache or acute visual change. Denies sinus or mouth discomforts. Denies neck stiffness or pain. Denies significant oral cavity pain. Denies difficulty on swallowing. Dentition is poor for age Lungs: Denies significant shortness of breath, cough, sputum production, or hemoptysis. Cardiovascular: Denies significant shortness of breath, chest pain, chest wall pain, orthopnea, dyspnea on exertion, syncope Gastrointestinal:Denies nausea, vomiting, diarrhea, constipation, hematemesis, melena, hematochezia. No no significant change of bowel habit noticed. Musculoskeletal: Is significant pain to the right arm is noted per the HPI. Skin: Significant abscess right arm. Other Prior injection sites are without pain or discomfort Neuro: Denies headache or visual change. Denies any new onset weakness or difficulty with ambulation. Denies falls or seizures. Psychiatric: Chronic polysubstance abuse Endocrine: Denies significant fatigue, denies significant weight loss or weight gain. The weight loss that he had from his chronic illness has resolved. Past Medical History Past Medical History: Musculoskeletal Disorder (Admits to soreness and tightness in his wrist and fingers. She has had swelling and erythema in his right upper extremity. Denies any recent trauma to his right upper extremity. He admits to recent fasciotomy at his right hip he is unclear the specific details but this was done in August 2016 at [facility]) Additional Past Medical History / Comment(s): drug abuse History of Any Multi-Drug Resistant Organisms: None Reported Additional Past Surgical History / Comment(s): right hip fascitomy, right foot drop Past Anesthesia/Blood Transfusion Reactions: Previous Problems w/ Anesthesia Additional Past Anesthesia/Blood Transfusion Reaction / Comm: Pt states he was hard to wake up after. Past Psychological History: No Psychological Hx Reported Additional Psychological History / Comment(s): Active injection drug use. His talk to psychiatry and is considering a subaxone program. Ongoing tobacco use. Has a girlfriend who he is sexually active with. No experience. 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 Denies animal exposures. When he is actively using he runs difficulties with homelessness Smoking Status: Current every day smoker Past Alcohol Use History: None Reported Past Drug Use History: Heroin - Past Family History Mother Family Medical History: No Reported History Father Family Medical History: No Reported History Medications and Allergies Home Medications and Allergies Comment(s): Current Medications Acetaminophen (Tylenol Tab) 650 mg PO Q6HR PRN PRN Reason: Mild Pain or Fever > 100.5 Hydrocodone Bitart/Acetaminophen ([place] 5-325) 1 each PO Q4HR PRN PRN Reason: Moderate Pain Last Admin: 02/22/17 07:54 Dose: 1 each Benzocaine/Menthol (Cepacol Lozenge) 1 each MUCOUS MEM Q4HR PRN PRN Reason: Sore Throat Clonidine (Catapres) 0.1 mg PO BID JOHANN Last Admin: 05/30/17 21:31 Dose: 0.1 mg Heparin Sodium (Porcine) (Heparin) 5,000 unit SQ Q12HR [facility] Last Admin: 02/22/17 21:31 Dose: Not Given Hydromorphone HCl (Dilaudid) 1 mg IVP Q4HR PRN PRN Reason: Severe Pain Last Admin: 02/22/17 19:50 Dose: 1 mg Vancomycin HCl 1,500 mg/ (Sodium Chloride) 250 mls @ 125 mls/hr IVPB Q12HR [facility] Last Admin: 02/22/17 21:32 Dose: 125 mls/hr Sodium Chloride (Saline 0.9%) 1,000 mls @ 75 mls/hr IV .[id number] [facility] Last Admin: 02/22/17 21:31 Dose: 75 mls/hr Ceftazidime 2 gm/ Sodium (Chloride) 100 mls @ 100 mls/hr IVPB Q8H [facility] Last Admin: 02/22/17 21:29 Dose: 100 mls/hr Ketorolac Tromethamine (Toradol) 15 mg IVP Q6HR PRN PRN Reason: pain Stop: 02/23/17 20:55 Last Admin: 02/22/17 21:44 Dose: 15 mg Lorazepam (Ativan) 1 mg IV Q4HR PRN PRN Reason: Anxiety Lorazepam (Ativan) 1 mg PO Q4HR PRN PRN Reason: Anxiety Last Admin: 02/22/17 19:55 Dose: 1 mg Methocarbamol (Robaxin) 500 mg PO QID PRN PRN Reason: Pain Naloxone HCl (Narcan) 0.2 mg IV Q2M PRN PRN Reason: Opioid Reversal Nicotine (Habitrol 14mg/24hr Patch) 1 patch TRANSDERM DAILY [facility] Last Admin: 02/22/17 07:53 Dose: 1 patch Ondansetron HCl (Zofran) 4 mg IVP Q8HR PRN PRN Reason: Nausea And Vomiting Pantoprazole Sodium (Protonix) 40 mg PO AC-[id number] [facility] Last Admin: 02/22/17 07:54 Dose: 40 mg Pregabalin (Lyrica) 150 mg PO BID [facility] Last Admin: 02/22/17 21:31 Dose: 150 mg Temazepam (Restoril) 15 mg PO HS PRN PRN Reason: Insomnia Home Medications Medication Instructions Recorded Confirmed Type Methocarbamol [Robaxin] 500 mg PO QID PRN 02/19/17 02/19/17 History Pregabalin [Lyrica] 150 mg PO BID 02/19/17 02/19/17 History Allergies Allergy/AdvReac Type Severity Reaction Status Date / Time No Known Allergies Allergy Verified 02/19/17 19:25 Physical Exam Vitals: Vital Signs Temp Pulse Resp BP Pulse Ox 02/22/17 16:12 96.3 F L 77 16 133/82 97 02/22/17 07:32 96.6 F L 83 20 115/58 96 Intake and Output 02/22/17 02/22/17 02/23/17 14:59 22:59 06:59 Other: # Voids 3 26-year-old male of a thin but muscular build in no acute distress HEENT: Anicteric conjunctiva are pink and moist nasal mucosa grossly intact without significant lesions, there is no thrush. Poor oral hygiene Neck: The neck is supple without significant lymphadenopathy or thyromegaly. Lungs: Good bilateral air entry without significant crackles or wheezing. There is no significant bronchial sounds. There is no egophony or dullness. Heart: Regular rate and rhythm with an audible S1-S2, no S3 no S4. There is no significant murmur click or rub, PMI was nondisplaced. Abdomen: Positive bowel sounds soft and nontender without palpable masses or organomegaly. There was no guarding or rebound. Extremities: Left upper extremity without acute abnormality is. Prior injection sites to the antecubital and forearm are without evidence of infection. The right upper extremity shows evidence the recent surgical incision to the abscess. It is packed as per surgery. The antecubital injection sites are without infection. The patient does not injection to his groin fingers or feet at this time. The lower extremities reveal evidence of no significant lesions. However the right hip where he had his fasciotomy continues to have a small area that has failed to completely epithelialized. Local therapy will be applied. The lower extremities are free from significant edema. The peripheral pulses were 2+ and symmetric. Neuro: Awake alert oriented to person place and time. There are no acute new gross focal sensory motor deficits. Patient is clear about his history of injection drug use and does voice some plans for discontinuation. Results CBC & Chem 7: 02/22/17 08:14 02/22/17 08:14 Labs: Abnormal Lab Results - Last 24 Hours (Table) 02/22/17 02/22/17 Range/Units 08:14 08:14 RBC 4.08 L (4.30-5.90) m/uL Hgb 12.3 L (13.0-17.5) gm/dL Hct 37.6 L (39.0-53.0) % Glucose 119 H (74-99) mg/dL Microbiology - Last 24 Hours (Table) 02/19/17 19:20 Blood Culture - Preliminary Blood No Growth after 72 hours 02/21/17 17:36 Gram Stain - Preliminary Arm - Right Wound Culture - Preliminary 02/21/17 17:36 Anaerobic Culture - Preliminary Arm - Right Laboratory Results WBC 9.4 k/uL (3.8-10.6) 02/22/17 08:14 RBC 4.08 m/uL (4.30-5.90) L 02/22/17 08:14 Hgb 12.3 gm/dL (13.0-17.5) L 02/22/17 08:14 Hct 37.6 % (39.0-53.0) L 02/22/17 08:14 MCV 92.1 fL (80.0-100.0) 02/22/17 08:14 MCH 30.0 pg (25.0-35.0) 02/22/17 08:14 MCHC 32.6 g/dL (31.0-37.0) 02/22/17 08:14 RDW 13.3 % (11.5-15.5) 02/22/17 08:14 Plt Count 334 k/uL (150-450) 02/22/17 08:14 Neutrophils % 79 % 02/22/17 08:14 Lymphocytes % 11 % 02/22/17 08:14 Monocytes % 5 % 02/22/17 08:14 Eosinophils % 2 % 02/22/17 08:14 Basophils % 0 % 02/22/17 08:14 Neutrophils # 7.4 k/uL (1.3-7.7) 02/22/17 08:14 Lymphocytes # 1.0 k/uL (1.0-4.8) 02/22/17 08:14 Monocytes # 0.5 k/uL (0-1.0) 02/22/17 08:14 Eosinophils # 0.2 k/uL (0-0.7) 02/22/17 08:14 Basophils # 0.0 k/uL (0-0.2) 02/22/17 08:14 Sodium 141 mmol/L (137-145) 02/22/17 08:14 Potassium 4.2 mmol/L (3.5-5.1) 02/22/17 08:14 Chloride 107 mmol/L (98-107) 02/22/17 08:14 Carbon Dioxide 25 mmol/L (22-30) 02/22/17 08:14 Anion Gap 9 mmol/L 02/22/17 08:14 BUN 17 mg/dL (9-20) 02/22/17 08:14 Creatinine 0.67 mg/dL (0.66-1.25) 02/22/17 08:14 Est GFR (MDRD) Af Amer >60 (>60 ml/min/1.73 sqM) 02/22/17 08:14 Est GFR (MDRD) Non-Af >60 (>60 ml/min/1.73 sqM) 02/22/17 08:14 Glucose 119 mg/dL (74-99) H 02/22/17 08:14 Calcium 9.1 mg/dL (8.4-10.2) 02/22/17 08:14 Total Bilirubin 0.4 mg/dL (0.2-1.3) 02/19/17 19:20 AST 26 U/L (17-59) 02/19/17 19:20 ALT 29 U/L (21-72) 02/19/17 19:20 Alkaline Phosphatase 72 U/L (38-126) 02/19/17 19:20 Total Protein 7.2 g/dL (6.3-8.2) 02/19/17 19:20 Albumin 4.3 g/dL (3.5-5.0) 02/19/17 19:20 Vancomycin Trough 20.4 ug/mL 02/21/17 06:58 Microbiology 02/19/17 19:20 Blood Blood Culture - Preliminary No Growth after 72 hours 02/21/17 17:36 Arm - Right Gram Stain - Preliminary 02/21/17 17:36 Arm - Right Wound Culture - Preliminary 02/21/17 17:36 Arm - Right Anaerobic Culture - Preliminary Assessment and Plan (1) Abscess of right arm Narrative/Plan: 26-year-old male who has a history of recurrent heroin and cocaine use who recently developed an abscess to his right forearm. This history of a prior significant illness and fasciotomy to his right hip he sought medical care. He is now had incision and drainage performed. Seems to be doing somewhat better at this time. Cultures are pending with evidence of gram-positive cocci and gram-negative bacilli. With this ceftaz and was added with concerns as could be a pseudomonas infection given his history of recreational drug use with heroin. Baseline laboratories are requested. Local wound care is as per the surgeon at this time. Depending on the size and once infections improved could be a candidate for negative pressure therapy. Patient would have to commit coming to the wound center. And lastly the final cultures will determine our course of antibiotic therapy, and possible need for outpatient intravenous antibiotic therapy should be challenging in this particular situation. Fortunately patient is quite forthright about his injection drug use. Leukocytosis are occluded the abscess to the right arm. Status: Acute (2) IVDU (intravenous drug user) Status: Acute (3) History of fasciotomy Status: Acute
[2017-02-23 00:36] LABS: Prealbumin 14 mg/dL (18-36)
[2017-02-23 02:52] LABS: Hepatitis B Surface Ag Index 0.08
[2017-02-23 02:58] LABS: Hepatitis B Core IgM Index 0.04
[2017-02-23 03:09] LABS: Hepatitis C Virus IgG Ab Reactive (Negative)
[2017-02-23] MEDS: LORazepam 1 MG TAB PO PRN ×5 (04:04→21:55)
[2017-02-23] MEDS: HYDROmorphone 1 MG/ML 1 ML SYRINGE IVP PRN ×5 (04:04→21:56)
[2017-02-23] MEDS: PANTOPRAZOLE 40 MG TABLET PO SCH (08:55)
[2017-02-23] MEDS: NICOTINE 14MG/24HR PATCH TRANSDERM SCH (08:55)
[2017-02-23] MEDS: HEPARIN SODIUM,PORCINE 5,000 UNIT/ML 1 ML VIAL SQ SCH ×2 (08:55→20:02)
[2017-02-23] MEDS: VANCOMYCIN 1,500 MG in SODIUM CHLORIDE 0.9% 250 ML IVPB SCH ×2 (08:55→20:01)
[2017-02-23] MEDS: cloNIDine HCL 0.1 MG TAB PO SCH (08:55)
[2017-02-23] MEDS: PREGABALIN 75 MG CAP PO SCH ×2 (08:59→20:02)
[2017-02-23 09:40] LABS: Basophils % (A) 1 %; CH 30.1; CHCM 32.8; Eosinophils # (A) 0.2 k/uL (0-0.7); Eosinophils % (A) 4 %; HCT 40.4 % (39.0-53.0); HGB 13.1 gm/dL (13.0-17.5); Luc # (Auto) 0.17; Luc % (Auto) 3; Lymphocytes % (A) 16 %; MCH 29.9 pg (25.0-35.0); MCHC 32.4 g/dL (31.0-37.0); MCV 92.2 fL (80.0-100.0); Mean Platelet Volume 6.6; Monocytes # (A) 0.3 k/uL (0-1.0); Monocytes % (A) 5 %; Neutrophils # (A) 4.3 k/uL (1.3-7.7); Neutrophils % (A) 72 %; RBC 4.39 m/uL (4.30-5.90); RDW 13.3 % (11.5-15.5); WBC (Perox) 5.99
[2017-02-23 09:44] LABS: Anion Gap 12 mmol/L; Blood Urea Nitrogen 19 mg/dL (9-20); Calcium 9.2 mg/dL (8.4-10.2); Carbon Dioxide 21 mmol/L (22-30); Chloride 109 mmol/L (98-107); Glucose 131 mg/dL (74-99); Non-African American GFR(MDRD) >60 (>60 ml/min/1.73 sqM); Potassium 4.3 mmol/L (3.5-5.1); Sodium 142 mmol/L (137-145)
[2017-02-23] MEDS: SODIUM CHLORIDE 0.9% 1,000 ML IV SCH ×2 (13:22→20:01)
[2017-02-23] MEDS: KETOROLAC 30 MG/ML 1 ML VIAL IVP PRN ×2 (13:33→19:56)
--- NOTE | 2017-02-23 15:25 | P.PN ---
Subjective Principal diagnosis: Right upper extremity cellulitis with pain and swelling; recent IV drug abuse Patient is a pleasant 26-year-old male who is seen and examined at bedside follow-up evaluation for his cellulitis and abscess of the right forearm with history of recent IV drug abuse. On 02/21/2017 he was taken to the operating room for irrigation and excisional debridement of the right forearm deep abscess extending into the fascia and muscle but not involving the bone. Since that time, he states he continued his have some tightness throughout range of motion of the right upper extremity but feels less tightness and his range of motion of the right upper extremity is more easy to perform. He does continue to have some warmth and swelling over the right upper extremity. He continues with some redness as well that is more localized to the right forearm. He does feel he has had some improvement of his symptoms as compared to yesterday. He' s been eating and voiding without significant difficulty. He continues receive IV vancomycin. He continues to be seen by Dr. Angela in medicine. He was also been seen and examined by Dr. Menon in infectious disease who was waiting to determine an antibiotic plan of care pending culture results. Objective - Vital Signs Vital signs: Vital Signs Temp 97.6 F 02/23/17 15:13 Pulse 72 02/23/17 15:13 Resp 17 02/23/17 15:13 BP 129/75 02/23/17 15:13 Pulse Ox 97 02/23/17 15:13 Intake & Output 02/22/17 02/23/17 02/23/17 18:59 06:59 18:59 Intake Total 1025 Balance 1025 Intake: Oral 1025 Other: # Voids 3 2 3 # Bowel Movements 1 - Exam Physical Exam: Patient is awake, alert, and oriented 3 Vital signs stable Good chest excursion with deep inspiration and expiration Abdomen soft nontender No signs or symptoms of DVT; no calf pain Dressing intact over the right forearm; Dressing is removed during physical examination Evidence of a small opening at the incision at the right forearm that appears smaller as compared to yesterday No evidence of active drainage from the incision site Dressing is reapplied with Adaptic, nonstick Telfa, 4 x 4's, and Nikolay wrap Right upper extremity erythema even more localized over the right mid forearm at the ulnar side as compared to yesterday Swelling of the right upper extremity at approximately the mid tricep distally throughout the right upper extremity that has had even more improvement as compared to yesterday Generalized pain with palpation of the right upper extremity Right upper extremity is warm with palpation Active range of motion of the right upper extremity; Mild increased pain with performing launderer hand on the right and finger extension Stiffness with moving all fingers of the right hand and performing elbow flexion and extension Active range of motion positive sustained without difficulty including the right deltoid - Labs CBC & Chem 7: 02/23/17 08:58 02/23/17 08:58 Labs: Abnormal Lab Results - Last 24 Hours (Table) 02/22/17 02/23/17 02/23/17 Range/Units 08:14 08:58 08:58 ESR 18 H (0-15) mm/hr Chloride 109 H (98-107) mmol/L Carbon Dioxide 21 L (22-30) mmol/L Glucose 131 H (74-99) mg/dL Prealbumin 14 L (18-36) mg/dL Microbiology - Last 24 Hours (Table) 02/19/17 19:20 Blood Culture - Preliminary Blood No Growth after 72 hours Assessment and Plan (1) Right arm pain Status: Acute (2) Swelling of right upper extremity Status: Acute (3) Cellulitis of arm, right Status: Acute (4) IVDU (intravenous drug user) Status: Acute Plan: Pertinent studies: Venous ultrasound Doppler of the right upper extremity: 3.6 cm superficial vascular area overlying the area of palpable abnormality which appears very complex in which the differential would include abscess and hematoma; no diagnostic evidence of DVT; scan of the right lateral forearm shows palpable 3.6 cm x 1.8 cm x 2.3 cm superficial complex vascular area Gram stain preliminary wound results: Show evidence of many gram-negative bacilli, few gram-positive cocci, and moderate polymorphonuclear leukocytes. Aerobic wound culture currently in progress Assessment: Right upper extremity cellulitis with recent history of IV drug abuse approximately 5 days ago Diffuse right upper extremity swelling and pain Evidence of discrete fluctuant collection/mass of the right mid forearm on the ulnar side Right upper extremity forearm infection with preliminary Gram stain results showing evidence of gram-negative bacilli, few gram-positive cocci Plan: 1. Dressing has been removed for physical examination and reapplied with Adaptic, nonstick Telfa, 4 x 4's, and Nikolay wrap. We will continue with daily dressing changes as needed. At this time patient may work through gentle range of motion of the right upper extremity but should avoid excessive activities with right upper extremity. We will continue to follow the patient closely. He should keep the dressing over the right forearm clean, dry, and intact. From an orthopedic standpoint, patient will be clear for discharge once cleared by medicine and infectious disease once he is able to be placed on antibiotic regimen for discharge. Infectious disease and medicine will most likely try to avoid PICC line placement given his IV drug abuse history. 2. Dr. Angela in medicine will continue to follow patient 3. Dr. Menon in infectious disease we'll continue to follow the patient and will determine an antibiotic regimen following culture results 4. Following discharge, patient may follow-up with Guillermo Cavazos PA-C or Dr. Jose Carlos Brewer at [facility] this coming 02/28/2017 , or next 03/01/2017 5. Patient has been discussed in detail with Dr. Jose Carlos Brewer and he agrees with this plan Time with Patient: Less than 30
--- NOTE | 2017-02-23 19:09 | P.PN ---
Subjective Date of service 02/23/2017. Progress note being dictated for Dr. Taylor Interval history: This a 26-year-old gentleman admitted with acute cellulitis with abscess of the right forearm secondary to IV drug abuse, status post I&D and multiple other medical issues. Aerobic wound Cultures in progress, Gram stain reporting gram-negative bacilli, few gram-negative cocci and moderate Polymorphonuclear leukocytes, aerobic wound culture reporting Streptococcus species. Continues on Merrem. Wound vac being discussed. Pain controlled. Denies chest pain, palpitations or increasing shortness of breath. Afebrile. Positive Hepatitis C per serology. Objective - Vital Signs Vital signs: Vital Signs Temp 97.6 F 02/23/17 15:13 Pulse 72 02/23/17 15:13 Resp 17 02/23/17 15:13 BP 129/75 02/23/17 15:13 Pulse Ox 97 02/23/17 15:13 Intake & Output 02/22/17 02/23/17 02/23/17 18:59 06:59 18:59 Intake Total 1025 Balance 1025 Intake: Oral 1025 Other: # Voids 3 2 3 # Bowel Movements 1 - Exam PHYSICAL EXAM: VITAL SIGNS: [As above] GENERAL: [Sitting up at side of bed, no acute distress] HEENT: [Pupils equal conjunctiva normal.] NECK: [Supple, no JVD] RESPIRATORY EFFORT:[ Normal] LUNGS: [Bilateral bases diminished, no wheezes rhonchi or crackles] CARDIOVASCULAR[ regular S1 and S2, no edema] GI: [Abdomen soft, nontender, positive bowel sounds.] PSYCH: [Alert and oriented -3, mood and affect normal.] SKIN: Tender Right forearm dressing clean dry and intact, improving erythema and swelling, gross and fine motor movements intact.] NEURO: No focal deficits Microbiology 02/21/17 17:36 Arm - Right Gram Stain - Preliminary 02/21/17 17:36 Arm - Right Wound Culture - Preliminary Streptococcus species 02/19/17 19:20 Blood Blood Culture - Preliminary No Growth after 72 hours 02/21/17 17:36 Arm - Right Anaerobic Culture - Preliminary - Labs CBC & Chem 7: 02/23/17 08:58 02/23/17 08:58 Labs: Abnormal Lab Results - Last 24 Hours (Table) 02/22/17 02/23/17 02/23/17 Range/Units 08:14 08:58 08:58 ESR 18 H (0-15) mm/hr Chloride 109 H (98-107) mmol/L Carbon Dioxide 21 L (22-30) mmol/L Glucose 131 H (74-99) mg/dL Prealbumin 14 L (18-36) mg/dL Microbiology - Last 24 Hours (Table) 02/21/17 17:36 Gram Stain - Preliminary Arm - Right Wound Culture - Preliminary Streptococcus species 02/19/17 19:20 Blood Culture - Preliminary Blood No Growth after 72 hours Assessment and Plan Plan: 1. [ Acute cellulitis with abscess of the right forearm secondary to IV drug abuse]. Cultures pending,;Gram stain reporting gram-negative bacilli, few gram positive cocci, aerobic culture streptococcal species 2. [ Hematoma or abscess complex mass lesion in the mid [id number] of the right forearm ultrasound, status post I&D]. 3. [ Leukocytosis]. 4. [ Anemia, normocytic]. 5. [ History of nicotine dependence]. 6. Hepatitis C Plan: Continue on current medication regime ,monitoring and symptomatic treatment. Final cultures pending with discharge antibiotic recommendations pending. GI consulted regarding hepatitis C serology. Discharge planning in progress for tomorrow. Prognosis guarded The impression and plan of care has been dictated as directed. : I performed a H&P examination of this patient and discussed the same with the dictator. I agree with the dictator's note. Any additional findings/opinions/ etc. will be noted.
[2017-02-23] MEDS: HYDROcodone/APAP 5-325MG 1 EACH TAB PO PRN (23:14)
[2017-02-24] MEDS: HYDROmorphone 1 MG/ML 1 ML SYRINGE IVP PRN ×5 (03:56→20:47)
[2017-02-24] MEDS: LORazepam 1 MG TAB PO PRN ×5 (03:56→20:47)
[2017-02-24 06:59] LABS: HIV-1/HIV-2 Ab Screen NONREAC (NON REAC)
[2017-02-24] MEDS ORDERED: VANCOMYCIN TROUGH DUE 1 EACH MISC MISCELLANE ONE (08:00)
[2017-02-24] MEDS: HEPARIN SODIUM,PORCINE 5,000 UNIT/ML 1 ML VIAL SQ SCH ×2 (08:31→21:38)
[2017-02-24] MEDS: NICOTINE 14MG/24HR PATCH TRANSDERM SCH (08:31)
[2017-02-24] MEDS: PANTOPRAZOLE 40 MG TABLET PO SCH (08:31)
[2017-02-24 08:56] LABS: Basophils % (A) 1 %; CH 30.2; CHCM 34.4; Eosinophils # (A) 0.3 k/uL (0-0.7); Eosinophils % (A) 5 %; HCT 37.7 % (39.0-53.0); HDW 2.96; HGB 12.6 gm/dL (13.0-17.5); Luc # (Auto) 0.22; Luc % (Auto) 4; Lymphocytes % (A) 18 %; MCH 29.6 pg (25.0-35.0); MCHC 33.5 g/dL (31.0-37.0); MCV 88.4 fL (80.0-100.0); Mean Platelet Volume 6.4; Monocytes # (A) 0.3 k/uL (0-1.0); Monocytes % (A) 5 %; Neutrophils % (A) 68 %; RBC 4.27 m/uL (4.30-5.90); RDW 13.2 % (11.5-15.5); WBC 5.8 k/uL (3.8-10.6); WBC (Perox) 6.21
[2017-02-24 09:05] LABS: Anion Gap 10 mmol/L; Blood Urea Nitrogen 17 mg/dL (9-20); Calcium 9.4 mg/dL (8.4-10.2); Carbon Dioxide 23 mmol/L (22-30); Chloride 107 mmol/L (98-107); Glucose 128 mg/dL (74-99); Non-African American GFR(MDRD) >60 (>60 ml/min/1.73 sqM); Potassium 4.4 mmol/L (3.5-5.1); Sodium 140 mmol/L (137-145)
--- NOTE | 2017-02-24 09:37 | P.PN ---
Progress Note - Text Postoperative day #3 Patient is seen and examined today at bedside. The patient has some pain around the surgical site as expected. Pain is being controlled with medication. He is not having any fevers. He is ambulatory around the room and hallways. He's been seen by the medical and GI services well in terms of his positive hepatitis status. Physical Exam Afebrile with stable vital signs Abdomen is soft nontender. Chest has good excursion deep and space expiration The incision site is clean dry and intact. No erythema there is no active drainage at his forearm. The erythema has significantly improved and there is no further swelling. There still remained some mild induration. He is good motion in his wrist hand and fingers and elbow. His compartments are soft. Extremities have not had neurologic change from prior to surgery. Calves and thighs were soft nontender without evidence of DVT. Assessment/Plan Postoperative day #3 status post irrigation and excisional debridement of right forearm abscess which is improving well History of IV drug use Positive hepatitis status Patient is progressing as expected from the surgery. His infection seems to be improving well and there is no further fluid collection apparent. He should continue with daily dry dressing changes. He should continue with his IV antibiotic per infectious disease management. From an orthopedic standpoint we do not plan further surgical intervention and I think it is okay for him to be discharged once his antibiotic protocol is established. I'll plan to see him back as an outpatient in approximately 10-14 days for recheck evaluation and removal of the stitches. We will continue pain control with oral or IV medications. We'll continue to follow patient closely.
--- NOTE | 2017-02-24 10:39 | P.CONS ---
History of Present Illness - Reason for Consult Consult date: 02/24/17 Hepatitis C reactive antibody Requesting physician: Mikey Angela - History of Present Illness 26-year-old male history of IVDA heroin abuse and with right arm cellulitis abscess status post incision and drainage. Consultation requested for positive hepatitis C reactive antibody. HIV nonreactive. Total bilirubin 0.4. AST 26. ALT 29. Alkaline phosphate 72. White count 6.0. Hemoglobin 13.1. Patient has use intravenous heroin intermittently the last several years. Last usage was 4 days prior to admission. Patient has known about his reactive hepatitis C antibody for at least 8 years but stated "never enough to require treatment". History of known liver diseases or alcoholism. Review of Systems Constitutional: Denies fever, chills, sweats, weight gain, or loss. HEENT: Negative for migraines, blurred vision or loss, earaches, drainage, tinnitus, oral mucosal lesions, dysphagia, or odynophagia. Cardiac: Negative for chest pain, arrhythmias, or palpitation. Respiratory: Negative for shortness of breath, hemoptysis, cough, or sputum production. Gastrointestinal: See HPI for pertinent findings. Genitourinary: Negative for hematuria, urgency, frequency, polyuria, dysuria, or penile discharge. Musculoskeletal: Negative for muscle aches, swelling, arthritis, and arthralgias. Neurologic: Negative for stroke or TIA. Endocrine: Negative for thyroid problems. Skin: Negative for rash or itching. Psychiatric: Negative history for depression and anxiety All systems: negative (See HPI) Past Medical History Past Medical History: Musculoskeletal Disorder (Admits to soreness and tightness in his wrist and fingers. She has had swelling and erythema in his right upper extremity. Denies any recent trauma to his right upper extremity. He admits to recent fasciotomy at his right hip he is unclear the specific details but this was done in August 2016 at [facility]) Additional Past Medical History / Comment(s): drug abuse History of Any Multi-Drug Resistant Organisms: None Reported Additional Past Surgical History / Comment(s): right hip fascitomy, right foot drop Past Anesthesia/Blood Transfusion Reactions: Previous Problems w/ Anesthesia Additional Past Anesthesia/Blood Transfusion Reaction / Comm: Pt states he was hard to wake up after. Past Psychological History: No Psychological Hx Reported Additional Psychological History / Comment(s): Active injection drug use. His talk to psychiatry and is considering a subaxone program. Ongoing tobacco use. Has a girlfriend who he is sexually active with. No experience. 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 Denies animal exposures. When he is actively using he runs difficulties with homelessness Smoking Status: Current every day smoker Past Alcohol Use History: None Reported Past Drug Use History: Heroin - Past Family History Mother Family Medical History: No Reported History Father Family Medical History: No Reported History Medications and Allergies Home Medications Medication Instructions Recorded Confirmed Type Methocarbamol [Robaxin] 500 mg PO QID PRN 02/19/17 02/19/17 History Pregabalin [Lyrica] 150 mg PO BID 02/19/17 02/19/17 History Allergies Allergy/AdvReac Type Severity Reaction Status Date / Time No Known Allergies Allergy Verified 02/19/17 19:25 Physical Exam Vitals: Vital Signs Temp Pulse Resp BP Pulse Ox 02/24/17 07:47 97.5 F L 82 16 125/71 98 02/23/17 23:44 96.3 F L 88 18 129/60 96 02/23/17 15:13 97.6 F 72 17 129/75 97 Intake and Output 02/23/17 02/24/17 02/24/17 22:59 06:59 14:59 Intake Total 600 600 Balance 600 600 Intake: Oral 600 600 Other: # Voids 1 2 1 General appearance: The patient is alert, oriented, in no acute distress. HET: Head is normocephalic and atraumatic. Pupils are equal and reactive. Oropharynx is clear without lesions. Neck: Supple without lymphadenopathy. Trachea midline. Heart: S1 S2. Regular rate and rhythm. Lungs: No crackles or wheezes are heard. Abdomen: Soft, nontender, nondistended with bowel sounds. No peritoneal signs. No palpable organomegaly or masses. Extremities: Right forearm with sutures mild erythema no purulence. Normal skin color and turgor. No cyanosis, rash, ulceration, clubbing, or edema. Radial and pedal pulses are 2/4 bilaterally. Neurological: No focal deficits. Strength and sensation are grossly intact. Results CBC & Chem 7: 02/24/17 08:08 02/24/17 08:08 Labs: Abnormal Lab Results - Last 24 Hours (Table) 02/23/17 02/23/17 Range/Units 08:58 08:58 ESR 18 H (0-15) mm/hr Chloride 109 H (98-107) mmol/L Carbon Dioxide 21 L (22-30) mmol/L Glucose 131 H (74-99) mg/dL Microbiology - Last 24 Hours (Table) 02/19/17 19:20 Blood Culture - Preliminary Blood No Growth after 96 hours 02/21/17 17:36 Gram Stain - Preliminary Arm - Right Wound Culture - Preliminary Streptococcus species Assessment and Plan (1) Hepatitis C antibody test positive Status: Acute (2) Intravenous drug abuse Status: Acute (3) Heroin abuse Status: Acute (4) Abscess of right arm Status: Acute Plan: 1. Quantitative hepatitis C measurement with genotype. AFP. IVDA abstinence strongly advised. 2. Psychiatry consultation appreciated recommendations noted. 3. Follow up in GI office after discharge for reevaluation and discussion of hepatitis C treatment if clinically necessary. Thank you for this kind referral and the opportunity to participate in the care of your patient. This consultation was discussed with Dr. Loyola. The impression and plan of care have been directed as dictated.
[2017-02-24] MEDS: PREGABALIN 75 MG CAP PO SCH ×2 (11:37→20:47)
[2017-02-24] MEDS: VANCOMYCIN 1,500 MG in SODIUM CHLORIDE 0.9% 250 ML IVPB SCH ×2 (11:37→21:38)
[2017-02-24] MEDS: SODIUM CHLORIDE 0.9% 1,000 ML IV SCH (13:12)
[2017-02-24 23:45] VITALS: RESP 18
[2017-02-25] MEDS: HYDROmorphone 1 MG/ML 1 ML SYRINGE IVP PRN ×2 (02:09→08:25)
[2017-02-25] MEDS: SODIUM CHLORIDE 0.9% 1,000 ML IV SCH (02:10)
[2017-02-25] MEDS: LORazepam 1 MG TAB PO PRN ×2 (02:10→08:25)
[2017-02-25 07:28] VITALS: BP 129/71; PULSE 71; TEMP 97.6
[2017-02-25] MEDS: PANTOPRAZOLE 40 MG TABLET PO SCH (08:24)
[2017-02-25] MEDS: HEPARIN SODIUM,PORCINE 5,000 UNIT/ML 1 ML VIAL SQ SCH (08:25)
[2017-02-25] MEDS: VANCOMYCIN 1,500 MG in SODIUM CHLORIDE 0.9% 250 ML IVPB SCH (08:25)
[2017-02-25] MEDS: PREGABALIN 75 MG CAP PO SCH (08:25)
--- NOTE | 2017-02-25 08:38 | P.PN ---
Subjective Date of service 02/24/2017. Progress note being dictated for Dr. Taylor Interval history: This a 26-year-old gentleman admitted with acute cellulitis with abscess of the right forearm secondary to IV drug abuse, status post I&D and multiple other medical issues. final wound cultures pending.Continues on Merrem. Pain controlled. good diet intake. Denies chest pain, palpitations or increasing shortness of breath. Afebrile. Objective - Vital Signs Vital signs: Vital Signs Temp 97.5 F L 02/24/17 07:47 Pulse 82 02/24/17 07:47 Resp 16 02/24/17 07:47 BP 125/71 02/24/17 07:47 Pulse Ox 98 02/24/17 07:47 Intake & Output 02/23/17 02/24/17 02/24/17 18:59 06:59 18:59 Intake Total 1200 Balance 1200 Intake: Oral 1200 Other: # Voids 3 2 1 # Bowel Movements 1 - Exam PHYSICAL EXAM: VITAL SIGNS: [As above] GENERAL: [Sitting up at side of bed, no acute distress] HEENT: [Pupils equal conjunctiva normal. no conjunctival pallor] NECK: [Supple, no JVD] RESPIRATORY EFFORT:[ Normal] LUNGS: [Bilateral bases diminished, no wheezes rhonchi or crackles] CARDIOVASCULAR[ regular S1 and S2, no edema] GI: [Abdomen soft, nontender, positive bowel sounds.] PSYCH: [Alert and oriented -3, mood and affect normal.] SKIN: Less Tender Right forearm dressing clean dry and intact, improving erythema and swelling, gross and fine motor movements intact.] NEURO: No focal deficits - Labs CBC & Chem 7: 02/24/17 08:08 02/24/17 08:08 Labs: Abnormal Lab Results - Last 24 Hours (Table) 02/23/17 02/24/17 02/24/17 Range/Units 08:58 08:08 08:08 RBC 4.27 L (4.30-5.90) m/uL Hgb 12.6 L (13.0-17.5) gm/dL Hct 37.7 L (39.0-53.0) % ESR 18 H (0-15) mm/hr Glucose 128 H (74-99) mg/dL Microbiology - Last 24 Hours (Table) 02/19/17 19:20 Blood Culture - Preliminary Blood No Growth after 96 hours 02/21/17 17:36 Gram Stain - Preliminary Arm - Right Wound Culture - Preliminary Streptococcus species Assessment and Plan Plan: 1. [ Acute cellulitis with abscess of the right forearm secondary to IV drug abuse]. Cultures pending,;Gram stain reporting gram-negative bacilli, few gram positive cocci, aerobic culture streptococcal species 2. [ Hematoma or abscess complex mass lesion in the mid [id number] of the right forearm ultrasound, status post I&D]. 3. [ Leukocytosis]. 4. [ Anemia, normocytic]. 5. [ History of nicotine dependence]. 6. Hepatitis C Plan: Continue on current medication regime ,monitoring and symptomatic treatment. Final cultures pending with discharge antibiotic recommendations pending. Discharge planning in progress for tomorrow. The impression and plan of care has been dictated as directed. : I performed a H&P examination of this patient and discussed the same with the dictator. I agree with the dictator's note. Any additional findings/opinions/ etc. will be noted.
--- NOTE | 2017-02-25 09:11 | P.PN ---
Subjective Principal diagnosis: Right upper extremity cellulitis with pain and swelling; recent IV drug abuse Patient is a pleasant 26-year-old male who is seen and examined at bedside follow-up evaluation for his cellulitis and abscess of the right forearm with history of recent IV drug abuse. On 02/21/2017 he was taken to the operating room for irrigation and excisional debridement of the right forearm deep abscess extending into the fascia and muscle but not involving the bone. Since been previously seen and examined at bedside, he states his right upper extremity symptoms have continued to improve. He is experiencing less tightness of the right upper extremity throughout range of motion. He is had decreased swelling of the right upper extremity. He continues to have some redness as well that is more localized to the right forearm. He does feel he has had some improvement of his symptoms as compared to yesterday. He's been eating and voiding without significant difficulty. He continues receive IV vancomycin. He continues to be seen by Dr. Angela in medicine. Patient states he has been given some discharge prescriptions by Dr. Angela. He was also been seen and examined by Dr. Menon in infectious disease who was waiting to determine an antibiotic plan of care pending culture results. Objective - Vital Signs Vital signs: Vital Signs Temp 97.6 F 02/25/17 07:27 Pulse 71 02/25/17 07:27 Resp 18 02/25/17 07:27 BP 129/71 02/25/17 07:27 Pulse Ox 95 02/25/17 07:27 Intake & Output 02/24/17 02/25/17 02/25/17 18:59 06:59 18:59 Intake Total 1300 240 Balance 1300 240 Intake: Intake, IV Titration 700 Amount Sodium Chloride 0.9% 1, 600 000 ml @ 75 mls/hr IV . [id number] [facility] Rx#:[id number] cefTAZidime 2 gm In 100 Sodium Chloride 0.9% 100 ml @ 100 mls/hr IVPB Q8H [facility] Rx#:[id number] Oral 600 240 Other: # Voids 1 2 - Exam Physical Exam: Patient is awake, alert, and oriented 3 Vital signs stable Good chest excursion with deep inspiration and expiration Abdomen soft nontender No signs or symptoms of DVT; no calf pain Dressing intact over the right forearm; Dressing is removed during physical examination Evidence of a small opening at the incision at the right forearm No evidence of active drainage from the incision site Dressing is reapplied with nonstick Telfa, 4 x 4's, and Nikolay wrap Right upper extremity erythema even more localized over the right mid forearm at the ulnar side as compared to Tuesday Reduced swelling of the right upper extremity at approximately the mid tricep distally throughout the right upper extremity that has had even more improvement as compared to yesterday No significant pain with palpation of the right upper extremity Right upper extremity is mildy warm with palpation Active range of motion of the right upper extremity; Mild increased pain with performing rfid analyst on the right and finger extension Decreased stiffness with moving all fingers of the right hand and performing elbow flexion and extension Active range of motion positive sustained without difficulty including the right deltoid - Labs CBC & Chem 7: 02/24/17 08:08 02/24/17 08:08 Labs: Abnormal Lab Results - Last 24 Hours (Table) 02/24/17 Range/Units 08:08 Glucose 128 H (74-99) mg/dL Microbiology - Last 24 Hours (Table) 02/21/17 17:36 Anaerobic Culture - Final Arm - Right Anaerobic Gm Negative Bacilli 02/19/17 19:20 Blood Culture - Preliminary Blood No Growth after 120 hours Assessment and Plan (1) Right arm pain Status: Acute (2) Swelling of right upper extremity Status: Acute (3) Cellulitis of arm, right Status: Acute (4) IVDU (intravenous drug user) Status: Acute Plan: Pertinent studies: Venous ultrasound Doppler of the right upper extremity: 3.6 cm superficial vascular area overlying the area of palpable abnormality which appears very complex in which the differential would include abscess and hematoma; no diagnostic evidence of DVT; scan of the right lateral forearm shows palpable 3.6 cm x 1.8 cm x 2.3 cm superficial complex vascular area Gram stain preliminary wound results: Show evidence of many gram-negative bacilli, few gram-positive cocci, and moderate polymorphonuclear leukocytes. Aerobic wound culture currently in progress Assessment: Right upper extremity cellulitis with recent history of IV drug abuse approximately 5 days ago Diffuse right upper extremity swelling and pain Evidence of discrete fluctuant collection/mass of the right mid forearm on the ulnar side Right upper extremity forearm infection with preliminary Gram stain results showing evidence of gram-negative bacilli, few gram-positive cocci Plan: 1. Dressing has been removed for physical examination and reapplied with Nonstick Telfa, 4 x 4's, and Nikolay wrap. We will continue with daily dressing changes as needed. At this time patient may work through gentle range of motion of the right upper extremity but should avoid excessive activities with right upper extremity. We will continue to follow the patient closely. He should keep the dressing over the right forearm clean, dry, and intact. From an orthopedic standpoint, patient will be clear for discharge once cleared by medicine and infectious disease once he is able to be placed on antibiotic regimen for discharge. Infectious disease and medicine will most likely try to avoid PICC line placement given his IV drug abuse history. 2. Dr. Angela in medicine will continue to follow patient 3. Dr. Menon in infectious disease we'll continue to follow the patient and will determine an antibiotic regimen following culture results 4. Following discharge, patient may follow-up with Guillermo Cavazos PA-C or Dr. Jose Carlos Brewer at [facility] this coming 02/28/2017 , or next 03/01/2017 5. Patient has been discussed in detail with Dr. Jose Carlos Brewer and he agrees with this plan Time with Patient: Less than 30
[2017-02-25] MEDS: NICOTINE 14MG/24HR PATCH TRANSDERM SCH (09:46)
[2017-02-25] MEDS: HYDROcodone/APAP 5-325MG 1 EACH TAB PO PRN (13:10)
--- NOTE | 2017-02-25 17:30 | P.PN ---
Subjective Principal diagnosis: Abscess right arm Pleasant 26-year-old male presents to the emergency center via his family because the onset of increasing pain and swelling to his right arm. He has a known history of heroin injection. At one of his last injection sites on the right forearm developed an area of increasing swelling and pain. Because he started to feel poorly. He sought care at the emergency center was found evidence of a significant abscess to the arm. Because he was admitted. He has been seen by orthopedics and the incision and drainage has occurred of the 6 cm abscess. Patient is postoperative day relatively well. The ulceration was packed by orthopedics today. His pain control seems to be adequate this time. He is denying further high-grade fevers, chills or rigors. He was somewhat concerned at the start of the problem to his right arm because of his history of a prior profound illness related to his right hip. He had overdosed with a heroin cocaine mix. And was unconscious for quite some time. When he finally awoke he had evidence of an extensive pressure wound that had started to his right hip. By the time he presented to Hospital he was profoundly ill with multisystem organ failure. He had acute renal failure that required hemodialysis for many weeks. He had rhabdomyolysis. Eventually he improved and was followed by surgery but never received a skin graft. Is noted he has ongoing difficulties with relapse of his injection drug use mostly with heroin and some cocaine. Denies other drugs at this time. Doing much better today Objective - Vital Signs Vital signs: Vital Signs Temp 97.6 F 02/25/17 07:27 Pulse 71 02/25/17 07:27 Resp 18 02/25/17 07:27 BP 129/71 02/25/17 07:27 Pulse Ox 95 02/25/17 07:27 Intake & Output 02/24/17 02/25/17 02/25/17 18:59 06:59 18:59 Intake Total 1300 480 Balance 1300 480 Intake: Intake, IV Titration 700 Amount Sodium Chloride 0.9% 1, 600 000 ml @ 75 mls/hr IV . [id number] [facility] Rx#:[id number] cefTAZidime 2 gm In 100 Sodium Chloride 0.9% 100 ml @ 100 mls/hr IVPB Q8H [facility] Rx#:[id number] Oral 600 480 Other: # Voids 1 2 2 # Bowel Movements 0 - Exam 26-year-old male of a thin but muscular build in no acute distress HEENT: Anicteric conjunctiva are pink and moist nasal mucosa grossly intact without significant lesions, there is no thrush. Poor oral hygiene Neck: The neck is supple without significant lymphadenopathy or thyromegaly. Lungs: Good bilateral air entry without significant crackles or wheezing. There is no significant bronchial sounds. There is no egophony or dullness. Heart: Regular rate and rhythm with an audible S1-S2, no S3 no S4. There is no significant murmur click or rub, PMI was nondisplaced. Abdomen: Positive bowel sounds soft and nontender without palpable masses or organomegaly. There was no guarding or rebound. Extremities: Left upper extremity without acute abnormality is. Prior injection sites to the antecubital and forearm are without evidence of infection. The right upper extremity shows evidence the recent surgical incision to the abscess. It is packed as per surgery. The antecubital injection sites are without infection. The patient does not injection to his groin fingers or feet at this time. The lower extremities reveal evidence of no significant lesions. However the right hip where he had his fasciotomy continues to have a small area that has failed to completely epithelialized. Local therapy will be applied. The lower extremities are free from significant edema. The peripheral pulses were 2+ and symmetric. Neuro: Awake alert oriented to person place and time. There are no acute new gross focal sensory motor deficits. Patient is clear about his history of injection drug use and does voice some plans for discontinuation. - Labs CBC & Chem 7: 02/24/17 08:08 02/24/17 08:08 Labs: Microbiology - Last 24 Hours (Table) 02/21/17 17:36 Anaerobic Culture - Final Arm - Right Anaerobic Gm Negative Bacilli 02/19/17 19:20 Blood Culture - Preliminary Blood No Growth after 120 hours Laboratory Results WBC 5.8 k/uL (3.8-10.6) 02/24/17 08:08 RBC 4.27 m/uL (4.30-5.90) L 02/24/17 08:08 Hgb 12.6 gm/dL (13.0-17.5) L 02/24/17 08:08 Hct 37.7 % (39.0-53.0) L 02/24/17 08:08 MCV 88.4 fL (80.0-100.0) 02/24/17 08:08 MCH 29.6 pg (25.0-35.0) 02/24/17 08:08 MCHC 33.5 g/dL (31.0-37.0) 02/24/17 08:08 RDW 13.2 % (11.5-15.5) 02/24/17 08:08 Plt Count 330 k/uL (150-450) 02/24/17 08:08 Neutrophils % 68 % 02/24/17 08:08 Lymphocytes % 18 % 02/24/17 08:08 Monocytes % 5 % 02/24/17 08:08 Eosinophils % 5 % 02/24/17 08:08 Basophils % 1 % 02/24/17 08:08 Neutrophils # 4.0 k/uL (1.3-7.7) 02/24/17 08:08 Lymphocytes # 1.0 k/uL (1.0-4.8) 02/24/17 08:08 Monocytes # 0.3 k/uL (0-1.0) 02/24/17 08:08 Eosinophils # 0.3 k/uL (0-0.7) 02/24/17 08:08 Basophils # 0.0 k/uL (0-0.2) 02/24/17 08:08 ESR 18 mm/hr (0-15) H 02/23/17 08:58 Sodium 140 mmol/L (137-145) 02/24/17 08:08 Potassium 4.4 mmol/L (3.5-5.1) 02/24/17 08:08 Chloride 107 mmol/L (98-107) 02/24/17 08:08 Carbon Dioxide 23 mmol/L (22-30) 02/24/17 08:08 Anion Gap 10 mmol/L 02/24/17 08:08 BUN 17 mg/dL (9-20) 02/24/17 08:08 Creatinine 0.68 mg/dL (0.66-1.25) 02/24/17 08:08 Est GFR (MDRD) Af Amer >60 (>60 ml/min/1.73 sqM) 02/24/17 08:08 Est GFR (MDRD) Non-Af >60 (>60 ml/min/1.73 sqM) 02/24/17 08:08 Glucose 128 mg/dL (74-99) H 02/24/17 08:08 Calcium 9.4 mg/dL (8.4-10.2) 02/24/17 08:08 Total Bilirubin 0.4 mg/dL (0.2-1.3) 02/19/17 19:20 AST 26 U/L (17-59) 02/19/17 19:20 ALT 29 U/L (21-72) 02/19/17 19:20 Alkaline Phosphatase 72 U/L (38-126) 02/19/17 19:20 Total Protein 7.2 g/dL (6.3-8.2) 02/19/17 19:20 Albumin 4.3 g/dL (3.5-5.0) 02/19/17 19:20 Prealbumin 14 mg/dL (18-36) L 02/22/17 08:14 Tumor Marker AFP <1.3 ng/mL (0.0-7.9) 02/24/17 08:43 Vancomycin Trough 12.5 ug/mL 02/24/17 08:08 Hepatitis A IgM Ab NEGATIVE 02/22/17 08:14 Hep Bs Antigen Negative 02/22/17 08:14 Hep B Core IgM Ab NEGATIVE 02/22/17 08:14 Hep C IgG Ab Reactive (Negative) 02/22/17 08:14 HIV-1 Ab Supplemental TNP 02/21/17 06:58 HIV-2 Ab Supplemental TNP 02/21/17 06:58 HIV 1&2 Ag/Ab, 4th Gen NONREAC (NON REAC) 02/21/17 06:58 Microbiology 02/21/17 17:36 Arm - Right Anaerobic Culture - Final Anaerobic Gm Negative Bacilli 02/19/17 19:20 Blood Blood Culture - Preliminary No Growth after 120 hours 02/21/17 17:36 Arm - Right Gram Stain - Preliminary 02/21/17 17:36 Arm - Right Wound Culture - Preliminary Streptococcus species Assessment and Plan (1) Abscess of right arm Narrative/Plan: 26-year-old male who has a history of recurrent heroin and cocaine use who recently developed an abscess to his right forearm. This history of a prior significant illness and fasciotomy to his right hip he sought medical care. He is now had incision and drainage performed. Seems to be doing somewhat better at this time. Cultures are pending with evidence of gram-positive cocci and gram-negative bacilli. With this ceftaz and was added with concerns as could be a pseudomonas infection given his history of recreational drug use with heroin. Baseline reveal HIV negative, positive Hep C seen by GI Ready for discharge to home. Oral antibiotics with augmentin provided. Wound care with nonstick provided. Status: Acute (2) IVDU (intravenous drug user) Status: Acute (3) History of fasciotomy Status: Acute
[2017-02-28 15:10] LABS: HCV Qualitative Result DETECTED (Not detected)
--- NOTE | 2017-03-03 07:25 | P.PN ---
Subjective Date of service 02/23/2017. Progress note being dictated for Dr. Taylor Interval history: This a 26-year-old gentleman admitted with acute cellulitis with abscess of the right forearm secondary to IV drug abuse, status post I&D and multiple other medical issues. Maintained on Merrem as per infectious disease. Awaiting final wound cultures to proceed with discharge antibiotic recommendations. Pain controlled. Ambulating in hallway. good diet intake. Denies chest pain, palpitations or increasing shortness of breath. Afebrile. Objective - Vital Signs Vital signs: Vital Signs Temp 97.2 F L 02/23/17 07:43 Pulse 74 02/23/17 07:43 Resp 19 02/23/17 07:43 BP 130/77 02/23/17 07:43 Pulse Ox 97 02/23/17 07:43 Intake & Output 02/22/17 02/23/17 02/23/17 18:59 06:59 18:59 Intake Total 1025 Balance 1025 Intake: Oral 1025 Other: # Voids 3 2 - Exam PHYSICAL EXAM: VITAL SIGNS: [As above] GENERAL: [Sitting up at side of bed, no acute distress] HEENT: [Pupils equal conjunctiva normal. no conjunctival pallor, oral mucosa moist] NECK: [Supple, no JVD] RESPIRATORY EFFORT:[ Normal] LUNGS: [Bilateral bases diminished, no wheezes rhonchi or crackles] CARDIOVASCULAR[ regular S1 and S2, no edema] GI: [Abdomen soft, nontender, positive bowel sounds.] PSYCH: [Alert and oriented -3, mood and affect normal.] SKIN: forearm dressing clean dry and intact, continued improving erythema and swelling, gross and fine motor movements intact.] NEURO: No focal deficits - Labs CBC & Chem 7: 02/24/17 08:08 02/24/17 08:08 Labs: Abnormal Lab Results - Last 24 Hours (Table) 02/22/17 02/23/17 Range/Units 08:14 08:58 Chloride 109 H (98-107) mmol/L Carbon Dioxide 21 L (22-30) mmol/L Glucose 131 H (74-99) mg/dL Prealbumin 14 L (18-36) mg/dL Microbiology - Last 24 Hours (Table) 02/19/17 19:20 Blood Culture - Preliminary Blood No Growth after 72 hours Assessment and Plan Plan: 1. [ Acute cellulitis with abscess of the right forearm secondary to IV drug abuse]. Cultures pending,;Gram stain reporting gram-negative bacilli, few gram positive cocci, aerobic culture streptococcal species 2. [ Hematoma or abscess complex mass lesion in the mid [id number] of the right forearm ultrasound, status post I&D]. 3. [ Leukocytosis]. 4. [ Anemia, normocytic]. 5. [ History of nicotine dependence]. 6. Hepatitis C Plan: Continue on current medication regime ,monitoring and symptomatic treatment. GI consult initiated regarding hepatitis C and patient will need outpatient follow-up as well. Final cultures pending with discharge antibiotic recommendations pending. Discharge planning in progress for tomorrow. The impression and plan of care has been dictated as directed. : I performed a H&P examination of this patient and discussed the same with the dictator. I agree with the dictator's note. Any additional findings/opinions/ etc. will be noted.
--- NOTE | 2017-03-13 20:21 | P.DS ---
Providers Date of admission: 02/19/17 19:00 Expected date of discharge: 02/25/17 Attending physician: Mikey Taylor Consults: 02/19/17 20:56 Consult Physician Routine Consulting Provider: Abdiel Sloan Consult Reason/Comments: rt arm cellulitis Do you want consulting provider notified?: Yes 02/22/17 09:04 Consult Physician Routine Consulting Provider: Pelon Menon Consult Reason/Comments: Right forearm cellulitis and infection; IV drug abuse; status post I&D Do you want consulting provider notified?: Yes 02/22/17 11:18 Consult Physician Urgent Consulting Provider: Pelon Armenta Consult Reason/Comments: Herion Abuse Do you want consulting provider notified?: Yes Primary care physician: Physician Maegantaff Dr. Gomez Hospital Course: Final Diagnoses: 1. [ Acute cellulitis with abscess of the right forearm secondary to IV drug abuse]. Cultures pending,;Gram stain reporting gram-negative bacilli, few gram positive cocci, aerobic culture streptococcal species 2. [ Hematoma or abscess complex mass lesion in the mid hcck-bxdrt-jhha of the right forearm ultrasound, status post I&D]. 3. [ Leukocytosis]. 4. [ Anemia, normocytic]. 5. [ History of nicotine dependence]. 6. Hepatitis C Hospital Course:This is a 26-year-old gentleman admitted with acute cellulitis with abscess of the right forearm secondary to IV drug abuse, status post I&D and multiple other medical issues. Evaluated/treated by Infectious Disease,GI, Othopedics and Psychiatry. Maintained on Merrem. Cultures reporting evidence of gram positive cocci, pollo negative bacilli. Oral Discharge antibiotics as per ID.Significant clinical improvement. Cleared by all consults for discharge. Pt is being discharged in a stable condition with a guarded prognosis. Microbiology 02/21/17 17:36 Arm - Right Gram Stain - Final 02/21/17 17:36 Arm - Right Wound Culture - Final Streptococcus viridans group 02/19/17 19:20 Blood Blood Culture - Final No Growth after 144 hours 02/21/17 17:36 Arm - Right Anaerobic Culture - Final Anaerobic Gm Negative Bacilli The impression and plan of care has been dictated as directed as a scribe. : I performed a H&P examination of this patient and discussed the same with the dictator. I agree with the dictator's note. Any additional findings/opinions/ etc. will be noted. Patient Condition at Discharge: Stable Plan - Discharge Summary New Discharge Prescriptions: New HYDROcodone/APAP 5-325MG [[place] 5-325] 1 each PO Q4HR PRN #20 tab PRN Reason: Moderate Pain Nicotine 14Mg/24Hr Patch [Habitrol] 1 patch TRANSDERM DAILY #30 patch Amoxic-Pot Clav 875-125Mg [Augmentin 875-125] 1 tab PO Q12HR #20 tablet Continue Methocarbamol [Robaxin] 500 mg PO QID PRN PRN Reason: Pain Pregabalin [Lyrica] 150 mg PO BID Discharge Medication List Methocarbamol [Robaxin] 500 mg PO QID PRN 02/19/17 [History] Pregabalin [Lyrica] 150 mg PO BID 02/19/17 [History] Amoxic-Pot Clav 875-125Mg [Augmentin 875-125] 1 tab PO Q12HR #20 tablet [Rx] HYDROcodone/APAP 5-325MG [[place] 5-325] 1 each PO Q4HR PRN #20 tab 02/25/17 [Rx] Nicotine 14Mg/24Hr Patch [Habitrol] 1 patch TRANSDERM DAILY #30 patch 02/25/17 [ Rx] Follow up Appointment(s)/Referral(s): Guillermo Cavazos PAC [PHYSICIAN DISABILITY INSURANCE HEARING OFFICER] - 10 Days (Patient may follow-up with Guillermo Cavazos PA-C or Dr. Jose Carlos Brewer at [facility] in approximately 1 week following discharge; Will plan have the patient follow up on 03/04/2017 or 03/07/2017. ) Prudence León PAC [REFERRING] - 03/11/17 (Please call to arrange appointment to discuss treatment plans and followup for Hepatitis C. ) Gertrudis Gomez MD [REFERRING] - 3 Days Ambulatory/Diagnostic Orders: Complete Blood Count w/diff [LAB.AMB] Time Frame: 3 Days, Location: Determined By Patient Ambulatory Miscellaneous Order [MISC.AMB] Location: Determined By Patient Patient Instructions/Handouts: Hepatitis C (DC), Acute Wound Care (DC) Activity/Diet/Wound Care/Special Instructions: 1. Keep dressing over the right forearm clean, dry, and intact 2. Continue with daily dressing changes over the right forearm incision and wound site as needed 3. Avoid excessive activities with right upper extremity 4. No illegal drug use. Smoking cessation information provided. Regular diet. Prescriptions and transportation payed for by hospital. Discharge Disposition: HOME SELF-CARE
== END 2017-02-25 15:16 | disposition home or self-care (01) | DRG 580 ==
LOC: EC 18:22 → 4MS4W 19:00
PROVIDERS: ADMIT Hospitalist; ATTEND Hospitalist
PROC: 0KB90ZZ Excision of Right Lower Arm and Wrist Muscle, Open Approach (ICD-10-PCS; principal; 2017-02-21 17:00)
DX: L03.113 Cellulitis of right upper limb (principal); F14.20 Cocaine dependence, uncomplicated; F11.20 Opioid dependence, uncomplicated; L02.413 Cutaneous abscess of right upper limb; B19.20 Unspecified viral hepatitis C without hepatic coma; E16.2 Hypoglycemia, unspecified; D64.9 Anemia, unspecified; F17.200 Nicotine dependence, unspecified, uncomplicated; M21.371 Foot drop, right foot; F10.21 Alcohol dependence, in remission; Z59.0 Homelessness; Z79.899 Other long term (current) drug therapy; X78.8XXA Intentional self-harm by other sharp object, initial encounter
CPT/HCPCS: 80048; 80053; 80074; 80202; 82105; 84134; 85025; 85652; 87040; 87070; 87075; 87077; 87186; 87205; 87389; 87522; 87902; 96374; 96375; 99285